=== PATIENT | female | born 1940 | race Caucasian/White ===

== ENCOUNTER 2020-07-21 11:18 | Outpatient (REF) | payer MEDICARE, OTHER, SELFPAY ==
[2020-07-21 14:52] LABS: Alanine Aminotransferase 24 U/L (0-31); Albumin Level 4.1 g/dL (3.5-5.0); Alkaline Phosphatase 64 U/L (39-117); Anion Gap 15 (12-20); Aspartate Amino Transferase 22 U/L (5-31); Bilirubin Direct 0.2 mg/dL (0.0-0.5); Bilirubin Total 0.4 mg/dL (0.0-1.0); Blood Urea Nitrogen 16 mg/dL (9-16); Carbon Dioxide 27 mmol/L (22-29); Chloride 103 mmol/L (96-108); Estimated Glomerular Filt Rate > 60; Potassium 4.1 mmol/l (3.3-5.1); Sodium 141 mmol/L (135-145); Total Protein 6.8 g/dL (6.5-8.0)
== END 2020-07-21 11:19 | disposition home or self-care (01) ==
LOC: HO.10HDL 11:18
PROVIDERS: Visit Provider Family Medicine
DX: K76.0 Fatty (change of) liver, not elsewhere classified (principal); I10 Essential (primary) hypertension; Z79.899 Other long term (current) drug therapy
CPT/HCPCS: 36415; 80051; 80076; 82565; 84520

== ENCOUNTER 2020-08-28 18:50 | Emergency (ER) | payer MEDICARE, OTHER, SELFPAY ==
--- NOTE | ~2020-08-28 | XR_ITS ---
EXAMINATION: XR SHOULDER, RIGHT CLINICAL INFORMATION: Fall and pain COMPARISON: None TECHNIQUE: 3. Plain film views of the right shoulder. FINDINGS: Minimally displaced slightly impacted humeral neck fracture is seen without significant angulation. Humeral head appears be well-seated within the glenoid fossa. Minimal degenerative changes. No acute abnormality within the visualized right ribs. XR/XR shoulder RT min 2V IMPRESSION: Minimally displaced and slightly impacted humeral neck fracture.
[2020-08-28 19:03] VITALS: BP 160/80; BP 181/70; PULSE 76; PULSE 89; RESP 18; TEMP 36.7; O2SAT 98; BMI 28.8
--- NOTE | 2020-08-28 19:03 | ED.FALL ---
HPI - Fall General Chief Complaint: Fall Stated Complaint: FALL, RT SHOULDER PAIN Time Seen by Provider: 08/28/20 19:02 Source: patient and EMS Mode of arrival: EMS Limitations: no limitations History of Present Illness HPI Narrative: 80-year-old female brought in by ambulance after sustained a fall, patient was at home next to her wheelchair when she was trying to fix a ceiling light patient lost balance tried to hold to the wheelchair which moved and patient fell landed on her left side, patient declined any head injury or LOC, no headache. No neck pain, no hips pain. Patient only complaining of right shoulder pain when she tried to grab the wheelchair and moved she think she twisted her right upper extremities. Related Data Previous Rx's Medication Instructions Recorded tramadol 50 mg PO BID PRN #7 tab 08/28/20 Allergies Allergy/AdvReac Type Severity Reaction Status Date / Time No Known Allergies Allergy Verified 08/28/20 19:03 [No Known Allergies*] Review of Systems Review of Systems: All other systems are reviewed and are negative Constitutional: Reports as per HPI and Reports no additional constitutional complaints Eyes: Reports as per HPI and Reports no additional eye complaints Reports system reviewed and no additional complaints, except as documented Cardiovascular: Reports as per HPI and Reports no additional cardiovascular complaints Respiratory: Reports as per HPI and Reports no additional respiratory complaints Gastrointestinal: Reports as per HPI and Reports no additional gastrointestinal complaints Genitourinary: Reports no additional female genitourinary complaints Musculoskeletal: Reports no additional musculoskeletal complaints Skin/Breast: Reports system reviewed and no additional complaints, except as docu Psychiatric: Reports no additional psychiatric complaints Endocrine: Reports no additional endocrine complaints Hematologic/Lymphatic: Reports no additional hematologic/lymphatic complaints Allergic/Immunologic: Reports no additional allergic/immunologic complaints Reports system reviewed and no additional complaints, except as documented and Reports Abnormal speech present COUNT INCLUDES THE [facility] Past Medical History Medical History (Updated 08/28/20 @ 20:55 by Mekhi Caldera MD) Dementia Social History Social History Advance Directives: No Advance Directives Information Provided: Yes Physical Exam Vital Signs: Vital Signs: Last Vital Signs Temp 98.1 F 08/28/20 19:46 Pulse 76 08/28/20 19:46 Resp 16 08/28/20 19:46 BP 179/58 H 08/28/20 19:46 Pulse Ox 97 08/28/20 19:46 Body Mass Index 28.8 Vital signs have been reviewed as normal and appeared to be correct. Blood pressure normal. Heart rate normal. Respiration rate normal. Temperature normal. Oxygen saturation normal. Appearance: Alert. Oriented X3. No acute distress. Head: Normal external exam. Normocephalic. Atraumatic. No Mix signs noted. No raccoon eyes noted Eyes: PERRLA. EOMI. Conjunctiva and sclera normal. Eyelids normal. ENT: EAC normal. TM's Normal. Pharynx normal. Uvula midline. Moist mucous membranes. No trismus noted. No drooling noted. No muffled voice noted. Neck: Normal inspection. Neck supple. FROM. No adenopathy. Thyroid Normal. No meningeal signs. No neck mass noted. CVS: Normal heart rate and rhythm. Heart sound normal. No murmurs noted. Pulses normal throughout. Respiratory: No respiratory distress. Painless inspiration. Breath sounds normal. No wheezes/rales/rhonchi noted. Chest nontender. No accessory muscle usage noted or decreased air movement noted. Abdomen: Soft and nontender. Bowel sounds normal in all 4 quadrants. No distention noted. No organomegaly noted. No visible injury noted. Back: No CVA tenderness. Full range of motion noted. Skin: Skin warm and dry. Normal skin color. Normal skin turgor. No rashes/lesions/lacerations noted. Extremities: Right shoulder held in abduction position, very tender abduction position, no obvious anterior fullness or deformity neurovascularly intact. Neuro: Oriented X 3. No motor deficit. No sensory deficit. Reflexes normal. Course Course Course Narrative: Assessment and plan. 80-year-old female who sustained mechanical fall and a right humeral neck fracture. Unfortunately patient's this morning, patient will be going home with her son. Sling was applied in the emergency department, will prescribe few pills for oxycodone for discharge. To follow-up with ortho. MDM - Fall Imaging Data Right shoulder x-ray: Radiologist's impression: Minimally displaced and slightly impacted humeral neck fracture. Discharge Plan Discharge Clinical Impression: Fracture of neck of humerus Qualifiers: Encounter type: initial encounter Fracture type: closed Laterality: right Qualified Code(s): S42.211A - Unspecified displaced fracture of surgical neck of right humerus, initial encounter for closed fracture Patient Disposition: Home, Self-Care Instructions: Arm Fracture in Adults (ED) Additional Instructions: Use the sling at all times and avoid moving the right arm. Apply ice to the right shoulder. Prescriptions: New tramadol 50 mg tablet 50 mg PO BID PRN (Reason: pain) Qty: 7 RF: 0 Referrals: Pascual Summers MD [Physician] - 2 days
[2020-08-28 19:46] VITALS: BP 179/58; PULSE 76; RESP 16; TEMP 36.7; O2SAT 97
[2020-08-28] MEDS: oxyCODONE HCl Immed Release 5 MG TABLET PO (20:34)
== END 2020-08-28 22:00 | disposition home or self-care (01) ==
PROVIDERS: Emergency Provider Emergency Medicine
DX: S42.211A Unspecified displaced fracture of surgical neck of right humerus, initial encounter for closed fracture (principal); X50.1XXA Overexertion from prolonged static or awkward postures, initial encounter; Y93.E9 Activity, other interior property and clothing maintenance; Y92.019 Unspecified place in single-family (private) house as the place of occurrence of the external cause; Y99.9 Unspecified external cause status
CPT/HCPCS: 73030; 99283

== ENCOUNTER → 2020-09-01 13:14 | Outpatient (BNVA) | payer MEDICARE, OTHER, SELFPAY | PROVIDERS: Visit Provider Physician Assistant | DX: S42.201A Unspecified fracture of upper end of right humerus, initial encounter for closed fracture (principal) | CPT/HCPCS: 99202 ==

== ENCOUNTER 2020-09-30 09:50 | Outpatient (REF) | payer MEDICARE, OTHER, SELFPAY ==
--- NOTE | ~2020-09-30 | XR_ITS ---
EXAMINATION: XR SHOULDER, RIGHT CLINICAL INFORMATION: Follow-up fracture COMPARISON: Previous x-ray 08/28/2020 TECHNIQUE: 2 views of the right shoulder of the right shoulder. FINDINGS: There is a comminuted slightly impacted right humeral neck fracture. There may be slight interval increase in medial displacement of the humeral shaft with respect to the head. Fracture line is still seen. No bony callus formation is seen. Joint spaces are normal. No other fracture is seen. Visualized right lung is clear. XR/XR shoulder RT min 2V IMPRESSION: Slight interval increase in displacement of the right humeral neck fracture.
== END 2020-09-30 09:51 | disposition home or self-care (01) ==
LOC: HO.HOSX 09:50
PROVIDERS: Visit Provider Physician Assistant
DX: S42.201D Unspecified fracture of upper end of right humerus, subsequent encounter for fracture with routine healing (principal)
CPT/HCPCS: 73030; 99212

== ENCOUNTER 2020-11-04 13:04 | Outpatient (REF) | payer MEDICARE, OTHER, SELFPAY ==
--- NOTE | ~2020-11-04 | XR_ITS ---
EXAMINATION: XR SHOULDER, RIGHT CLINICAL INFORMATION: Right shoulder fracture COMPARISON: 09/30/2020 TECHNIQUE: Two views of the right shoulder. FINDINGS: Alignment of the fracture is slightly improved. There has been some new callus formation in the interim although the fracture is predominantly ununited. No new abnormality. XR/XR shoulder RT min 2V IMPRESSION: Continued callus formation of the proximal humerus fracture which remains ununited.
== END 2020-11-04 13:05 | disposition home or self-care (01) ==
LOC: HO.HOSX 13:04
PROVIDERS: PCP Family Medicine; Visit Provider Physician Assistant
DX: S42.201D Unspecified fracture of upper end of right humerus, subsequent encounter for fracture with routine healing (principal); X58.XXXD Exposure to other specified factors, subsequent encounter
CPT/HCPCS: 73030; 99212

== ENCOUNTER 2020-12-16 13:24 | Outpatient (REF) | payer MEDICARE, OTHER, SELFPAY ==
--- NOTE | ~2020-12-16 | XR_ITS ---
EXAMINATION: XR SHOULDER, RIGHT CLINICAL INFORMATION: Proximal humeral fracture. Follow-up. COMPARISON: Radiographs right shoulder 11/04/2020, 09/30/2020 TECHNIQUE: Right shoulder is imaged in 3 views. FINDINGS: The right humeral neck fracture is stable in alignment. Fracture lines are still visible. There is callus formation again noted slightly increased from prior study. No interval destructive process. No dislocation. There are degenerative changes again seen acromioclavicular joint. XR/XR shoulder RT min 2V IMPRESSION: Proximal humeral fracture unchanged in alignment. Increased callus formation. Fracture line still visible.
== END 2020-12-16 13:25 | disposition home or self-care (01) ==
LOC: HO.XRAY 13:24
PROVIDERS: PCP Family Medicine; Visit Provider Physician Assistant
DX: S42.201A Unspecified fracture of upper end of right humerus, initial encounter for closed fracture (principal)
CPT/HCPCS: 73030; 99212

== ENCOUNTER 2021-01-09 12:39 | Outpatient (REF) | payer MEDICARE, OTHER, SELFPAY ==
[2021-01-09 14:02] LABS: MANUAL DIFF FLAG NO
[2021-01-09 14:03] LABS: Basophils Percent Auto 0.3 % (0-2); Eosinophils Absolute Auto 0.2 X10*3/uL (0.0-0.4); Eosinophils Percent Auto 2.4 % (0-4); Hematocrit 45.7 % (37-47); Hemoglobin 14.4 g/dl (12.0-16.0); Imm Gran Abs Auto 0.04 X10*3/uL (0.00-0.03); Imm Gran Pct Auto 0.5 % (0.0-0.4); Lymphocytes Percent Auto 23.6 % (20-40); Mean Corpuscular HGB Conc 31.5 g/dl (31.0-35.0); Mean Corpuscular Hemoglobin 29.6 pg (27.0-33.0); Mean Corpuscular Volume 93.8 fL (80-98); Mean Platelet Volume 10.2 fL (9.4-12.3); Monocytes Absolute Auto 0.8 X10*3/uL (0.1-1.2); Monocytes Percent Auto 9.4 % (2-11); Neutrophils Absolute Auto 5.5 X10*3/uL (2.0-8.3); Neutrophils Percent Auto 63.8 % (45-73); Platelet Count 272 X10*3/uL (160-400); Red Blood Count 4.87 X10*6/uL (4.20-5.50); White Blood Count 8.6 X10*3/uL (4.8-10.8)
[2021-01-09 14:35] LABS: Alanine Aminotransferase 19 U/L (0-31); Albumin Level 4.3 g/dL (3.5-5.0); Alkaline Phosphatase 82 U/L (39-117); Aspartate Amino Transferase 23 U/L (5-31); Bilirubin Direct 0.2 mg/dL (0.0-0.5); Bilirubin Total 0.2 mg/dL (0.0-1.0); Estimated Glomerular Filt Rate > 60; Total Protein 7.1 g/dL (6.5-8.0)
== END 2021-01-09 12:40 | disposition home or self-care (01) ==
LOC: HO.LAB 12:39
PROVIDERS: PCP Family Medicine; Visit Provider Family Medicine
DX: K75.81 Nonalcoholic steatohepatitis (NASH) (principal); R27.0 Ataxia, unspecified
CPT/HCPCS: 36415; 80076; 82565; 85025

== ENCOUNTER 2021-10-03 16:43 | Outpatient (REF) | payer MEDICARE, OTHER, SELFPAY ==
[2021-10-03 16:57] LABS: MANUAL DIFF FLAG NO
[2021-10-03 17:53] LABS: Basophils Percent Auto 0.4 % (0-2); Eosinophils Absolute Auto 0.2 X10*3/uL (0.0-0.4); Eosinophils Percent Auto 3.1 % (0-4); Hematocrit 45.6 % (37.0-47.0); Hemoglobin 14.3 g/dl (12.0-16.0); Imm Gran Abs Auto 0.02 X10*3/uL (0.00-0.03); Imm Gran Pct Auto 0.3 % (0.0-0.4); Lymphocytes Absolute Auto 2.1 X10*3/uL (1.2-4.9); Lymphocytes Percent Auto 27.7 % (20-40); Mean Corpuscular HGB Conc 31.4 g/dl (31.0-35.0); Mean Corpuscular Hemoglobin 29.5 pg (27.0-33.0); Mean Corpuscular Volume 94.2 fL (80.0-98.0); Mean Platelet Volume 10.6 fL (9.4-12.3); Monocytes Absolute Auto 0.7 X10*3/uL (0.1-1.2); Monocytes Percent Auto 9.5 % (2-11); Neutrophils Absolute Auto 4.6 x10*3/uL (2.0-8.3); Platelet Count 255 X10*3/uL (160-400); Red Blood Count 4.84 X10*6/uL (4.20-5.50); Red Cell Distribution Width 13.4 % (11.0-16.0); White Blood Count 7.7 X10*3/uL (4.8-10.8)
[2021-10-03 18:08] LABS: Alanine Aminotransferase 31 U/L (0-31); Albumin Level 4.2 g/dL (3.5-5.0); Alkaline Phosphatase 70 U/L (39-117); Anion Gap 13 (12-20); Aspartate Amino Transferase 27 U/L (5-31); Bilirubin Direct < 0.2 mg/dL (0.0-0.5); Bilirubin Total 0.4 mg/dL (0.0-1.0); Blood Urea Nitrogen 16 mg/dL (9-16); Carbon Dioxide 28 mmol/L (22-29); Chloride 106 mmol/L (96-108); Estimated Glomerular Filt Rate > 60; Potassium 4.9 mmol/L (3.3-5.1); Sodium 142 mmol/L (135-145); Total Protein 7.1 g/dL (6.5-8.0)
== END 2021-10-03 16:44 | disposition home or self-care (01) ==
LOC: HO.LAB 16:43
PROVIDERS: Visit Provider Family Medicine
DX: R27.0 Ataxia, unspecified (principal); R79.89 Other specified abnormal findings of blood chemistry
CPT/HCPCS: 36415; 80051; 80076; 82565; 84520; 85025

== ENCOUNTER 2022-08-23 15:22 | Outpatient (REF) | payer MEDICARE, OTHER, SELFPAY ==
[2022-08-23 15:42] LABS: MANUAL DIFF FLAG NO
[2022-08-23 15:57] LABS: Basophils Percent Auto 0.5 % (0-2); Eosinophils Absolute Auto 0.1 X10*3/uL (0.0-0.4); Eosinophils Percent Auto 1.4 % (0-4); Hematocrit 46.3 % (37.0-47.0); Hemoglobin 15.3 g/dl (12.0-16.0); Imm Gran Abs Auto 0.03 X10*3/uL (0.00-0.03); Imm Gran Pct Auto 0.4 % (0.0-0.4); Lymphocytes Absolute Auto 2.1 X10*3/uL (1.2-4.9); Lymphocytes Percent Auto 25.3 % (20-40); Mean Corpuscular Hemoglobin 29.9 pg (27.0-33.0); Mean Corpuscular Volume 90.6 fL (80.0-98.0); Mean Platelet Volume 10.4 fL (9.4-12.3); Monocytes Absolute Auto 0.6 X10*3/uL (0.1-1.2); Monocytes Percent Auto 6.9 % (2-11); Neutrophils Absolute Auto 5.5 x10*3/uL (2.0-8.3); Neutrophils Percent Auto 65.5 % (45-73); Platelet Count 251 X10*3/uL (160-400); Red Blood Count 5.11 X10*6/uL (4.20-5.50); Red Cell Distribution Width 13.2 % (11.0-16.0); White Blood Count 8.4 X10*3/uL (4.8-10.8)
[2022-08-23 16:20] LABS: Alanine Aminotransferase 28 U/L (0-31); Albumin Level 4.2 g/dL (3.5-5.0); Alkaline Phosphatase 81 U/L (39-117); Anion Gap 17 (12-20); Aspartate Amino Transferase 26 U/L (5-31); Bilirubin Total 0.4 mg/dL (0.0-1.0); Blood Urea Nitrogen 15 mg/dL (9-16); Calcium 9.9 mg/dL (8.4-10.2); Carbon Dioxide 28 mmol/L (22-29); Chloride 105 mmol/L (96-108); Estimated Glomerular Filt Rate > 60; Glucose Random 138 mg/dL (60-115); Potassium 4.6 mmol/L (3.3-5.1); Sodium 145 mmol/L (135-145)
== END 2022-08-23 15:23 | disposition home or self-care (01) ==
LOC: HO.LAB 15:22
PROVIDERS: PCP Family Medicine; Visit Provider Family Medicine
DX: I10 Essential (primary) hypertension (principal); R53.83 Other fatigue; R27.0 Ataxia, unspecified
CPT/HCPCS: 36415; 80053; 85025

== ENCOUNTER 2022-09-19 11:41 | Outpatient (REF) | payer MEDICARE, OTHER, SELFPAY ==
--- NOTE | ~2022-09-19 | MM_ITS ---
EXAMINATION: MM SCREENING DIGITAL BREAST TOMOSYNTHESIS, BILATERAL CLINICAL INFORMATION: Screening. Asymptomatic. The lifetime risk of breast cancer based on the Tyrer-Cuzick Model is 1%. COMPARISON: Multiple prior mammography, most recent 04/08/2020. TECHNIQUE: Digital breast tomosynthesis is performed in both the craniocaudal and mediolateral oblique views along with computer-aided detection (CAD). Synthesized 2D images are generated from the tomosynthesis. Additional exaggerated right CC view is provided. FINDINGS: There are scattered areas of fibroglandular density (ACR BI-RADS breast composition Category b). Parenchymal pattern is similar to prior exams. Again, there is numerous bilateral scattered bilateral smooth round and oval waxing and waning nodularity. There is no significant mass or architectural abnormality. No abnormal calcifications. There is a dermal lesion again seen overlying the anterior outer right breast. The axilla and skin contours are unremarkable. MM/MM tomosynthesis screening BI IMPRESSION: -No significant changes from prior studies. ASSESSMENT: BI-RADS 2: Benign RECOMMENDATION: Routine annual mammography screening. This patient's information was entered into a reminder system with a target due date for their next mammogram.
== END 2022-09-19 11:42 | disposition home or self-care (01) ==
LOC: HO.MAMMO 11:41
PROVIDERS: PCP Family Medicine; Visit Provider Family Medicine
DX: Z12.31 Encounter for screening mammogram for malignant neoplasm of breast (principal)
CPT/HCPCS: 77063; 77067

== ENCOUNTER 2023-02-26 13:39 | Outpatient (REF) | payer MEDICARE, OTHER, SELFPAY ==
[2023-02-26 13:59] LABS: MANUAL DIFF FLAG NO
[2023-02-26 14:56] LABS: Basophils Percent Auto 0.5 % (0-2); Eosinophils Absolute Auto 0.2 X10*3/uL (0.0-0.4); Eosinophils Percent Auto 2.4 % (0-4); Hematocrit 47.3 % (37.0-47.0); Hemoglobin 15.2 g/dl (12.0-16.0); Imm Gran Abs Auto 0.03 X10*3/uL (0.00-0.03); Imm Gran Pct Auto 0.4 % (0.0-0.4); Lymphocytes Absolute Auto 1.9 X10*3/uL (1.2-4.9); Lymphocytes Percent Auto 23.6 % (20-40); Mean Corpuscular HGB Conc 32.1 g/dl (31.0-35.0); Mean Corpuscular Volume 93.5 fL (80.0-98.0); Monocytes Absolute Auto 0.7 X10*3/uL (0.1-1.2); Monocytes Percent Auto 8.8 % (2-11); Neutrophils Absolute Auto 5.2 x10*3/uL (2.0-8.3); Neutrophils Percent Auto 64.3 % (45-73); Platelet Count 257 X10*3/uL (160-400); Red Blood Count 5.06 X10*6/uL (4.20-5.50); Red Cell Distribution Width 13.3 % (11.0-16.0); White Blood Count 8.1 X10*3/uL (4.8-10.8)
[2023-02-26 15:43] LABS: Alanine Aminotransferase 25 U/L (0-31); Albumin Level 4.2 g/dL (3.5-5.0); Alkaline Phosphatase 75 U/L (39-117); Anion Gap 13 (12-20); Aspartate Amino Transferase 24 U/L (5-31); Bilirubin Total 0.3 mg/dL (0.0-1.0); Blood Urea Nitrogen 13 mg/dL (9-16); Calcium 9.9 mg/dL (8.4-10.2); Carbon Dioxide 30 mmol/L (22-29); Chloride 104 mmol/L (96-108); Estimated Glomerular Filt Rate > 60; Glucose Random 86 mg/dL (60-115); Potassium 4.3 mmol/L (3.3-5.1); Sodium 143 mmol/L (135-145); Total Protein 7.3 g/dL (6.5-8.0)
[2023-03-01 03:23] LABS: Copper, serum 97 mcg/dL (70-175)
== END 2023-02-26 13:40 | disposition home or self-care (01) ==
LOC: HO.LAB 13:39
PROVIDERS: PCP Family Medicine; Visit Provider Family Medicine
DX: R53.1 Weakness (principal); R27.0 Ataxia, unspecified; E04.2 Nontoxic multinodular goiter
CPT/HCPCS: 36415; 80053; 82525; 84439; 85025

== ENCOUNTER 2023-03-16 12:34 | Emergency (ER) | payer MEDICARE, OTHER, SELFPAY ==
--- NOTE | ~2023-03-16 | XR_ITS ---
EXAMINATION: XR CHEST CLINICAL INFORMATION: Shortness of breath COMPARISON: Frontal view 03/09/19 TECHNIQUE: 2 views of the chest were obtained. FINDINGS: Devices overlie the patient. There is kyphosis and rotation to the left. There is calcification of the aortic arch. The cardiac size, anthony and vasculature are within normal limits. There is no acute focal pneumonia or major zone atelectasis. There is no significant pleural fluid or pneumothorax. Moderately severe osteophytes in the visualized spine. XR/XR chest 2V IMPRESSION: No definite focal pneumonia or edema.
[2023-03-16 12:40] VITALS: BP 152/88; PULSE 115; O2SAT 97
[2023-03-16 12:44] VITALS: BP 170/70; PULSE 108; RESP 20; TEMP 38.5; O2SAT 95; BMI 30.7
--- NOTE | 2023-03-16 13:02 | ECG_ITS ---
Test Reason : WEAKNESS Blood Pressure : / mmHG Vent. Rate : 106 BPM Atrial Rate : 106 BPM P-R Int : 156 ms QRS Dur : 076 ms QT Int : 344 ms P-R-T Axes : 037 -18 079 degrees QTc Int : 456 ms Sinus tachycardia Cannot rule out Anterior infarct , age undetermined Abnormal ECG When compared with ECG of 09-MAR-2019 15:41, No significant change was found Referred By: Bonita Peterson Electronically Signed By:RENATA LAURENT
--- NOTE | 2023-03-16 13:09 | ED.FEVER ---
HPI - Fever General Chief Complaint: Fever Stated Complaint: Shortness of Breath Time Seen by Provider: 03/16/23 12:34 Source: patient and EMS Mode of arrival: EMS Limitations: altered mental status History of Present Illness HPI Narrative: 82yo female with past medical history of dementia presents to the ER with complaints of sore throat, cough, shortness of breath, body aches since last evening. On arrival patient is febrile. Patient denies any chest pain, vomiting, diarrhea, abdominal pain, skin rash, neck pain, neck stiffness Related Data Previous Rx's Medication Instructions Recorded tramadol 50 mg tablet 50 mg PO BID PRN pain #7 tabs 08/28/20 Allergies Allergy/AdvReac Type Severity Reaction Status Date / Time No Known Allergies Allergy Verified 12/16/20 14:09 [No Known Allergies*] Review of Systems Review of Systems: Yes all other systems are reviewed and are negative Constitutional: Constitutional: Reports no additional constitutional complaints, Reports body ache(s), Denies chills, Reports fever(s), Denies headache(s) and Denies weakness Eyes: Eyes: Reports no additional eye complaints and Denies change in vision ENT: Reports system reviewed and no additional complaints, except as documented, Denies dizziness, Denies headache(s), Denies nasal congestion, Denies nasal discharge, Denies neck pain and Reports sore throat Cardiovascular: Cardiovascular: Reports no additional cardiovascular complaints, Denies chest pain, Denies leg edema and Reports dyspnea Respiratory: Respiratory: Reports no additional respiratory complaints, Reports cough and Reports dyspnea Gastrointestinal: Gastrointestinal: Reports no additional gastrointestinal complaints, Denies abdominal pain, Denies diarrhea, Denies nausea and Denies vomiting Genitourinary: Genitourinary: Reports no additional female genitourinary complaints and Denies urinary incontinence Musculoskeletal: Musculoskeletal: Reports no additional musculoskeletal complaints, Denies back pain, Denies arthralgias, Denies joint swelling, Denies neck pain, Denies numbness and Denies tingling Integumentary/Breasts: Skin/Breast: Reports system reviewed and no additional complaints, except as docu and Denies rash Neurologic: Reports system reviewed and no additional complaints, except as documented, Denies Abnormal speech present, Reports confusion, Denies dizziness, Denies headache(s), Denies numbness, Denies tingling and Denies weakness Psychiatric: Psychiatric: Reports confusion PMFSH Past Medical History Attestation statement: The following information was validated with the patient. Source: old records reviewed and nursing notes reviewed Medical History Dementia Social History Social History Alcohol intake: never Smoked in Last 30 Days: No Use of substances other than those prescribed or required for medical reasons: No Advance Directives: No Advance Directives Information Provided: No Current occupational status: retired and disabled Current occupation: rt handed Physical Exam Vital Signs: Vital Signs: Last Vital Signs Temp 100.3 F 03/16/23 16:05 Pulse 82 03/16/23 16:05 Resp 18 03/16/23 16:05 BP 144/82 H 03/16/23 14:00 Pulse Ox 95 03/16/23 16:05 O2 Del Method Room Air 03/16/23 16:05 BMI result Body Mass Index 30.7 Const: General: cooperative, healthy appearing, comfortable, no acute distress and confusion Orientation/consciousness: confusion Limitations: no limitations HEENT: Head: Yes normal to inspection Ears: hearing grossly normal bilaterally and TM's normal bilaterally General nose exam: Normal external nose present Face and sinus: Yes normal facial exam Mouth: Normal oral and palatal mucosa present Throat: Yes posterior oropharynx normal, Yes tonsils normal and Yes uvula midline Eyes: General: appearance normal, both eyes and all related structures Pupils: Equal, round and reactive pupils present Neck: Neck: Yes normal visual inspection, Yes full ROM, Yes no lymphadenopathy and Yes no meningeal signs Chest: Chest palpation & inspection: normal inspection of the chest Resp: Effort & Inspection: normal respiratory effort Auscultation: clear to auscultation bilaterally Cardio: Rate: regular rate Rhythm: regular rhythm Peripheral pulses: Peripheral pulses 2+ throughout GI: Inspection: Yes normal to inspection Palpation (GI): Soft to palpation and nontender Auscultation: normal bowel sounds Back/Spine/Pelvis: Thoracic/Lumbar Spine: thoracic and lumbar spine normal to inspection Skin: General skin exam: no rashes or lesions noted Neuro: General: no meningeal signs, no focal motor deficits, normal sensation to monofilament and confusion Cranial nerves: Yes Equal, round and reactive pupils present Cognition (Neuro): normal cognition Speech: No Abnormal speech present Motor exam (neuro): 5/5 motor strength present throughout Sensory Exam: Normal double simultaneous stimulation for sensation Extrem: General: Yes normal to inspection, Yes no pedal edema and Yes no calf tenderness Course Course Course Narrative: 1414-fever and tachycardia from viral infection (COVID) Reevaluation(s) Reevaluation #1: 1600-patient ambulated in the emergency room with oxygen saturation greater than 95% with no hypoxia or tachypnea. Her repeat lactic acid is pending. She did receive IV fluids. She does live with her son. I called and left a message with him to inform him of her results and make sure that he is comfortable with her being discharged home to him. Sign out to Symone GERONIMO pending above Reevaluation #2: lactic acid normal. patient up and ambulating well with SpO2 95%. at this time she is stable for d/c home. 2 calls made to the son about d/c home - VM left. he is a teletray operator and has mass this evening. will try again later to contact him. Medications Administered Discontinued Medications Generic Name Dose Route Start Last Admin Trade Name Freq PRN Reason Stop Dose Admin Acetaminophen 975 mg 03/16/23 13:02 03/16/23 13:34 Acetaminophen 325 Mg Tablet PO 03/16/23 13:03 975 mg ONCE ONE Administration Sodium Chloride 1,000 mls @ 999 mls/hr 03/16/23 13:02 03/16/23 16:15 Ns IV 03/16/23 14:02 Infused .Q1H1M STA Infusion Medical Decision Making Medical Decision Making [facility] Narrative: 82-year-old female with a history dementia presents to the ER with upper respiratory symptoms and fever. On arrival patient is febrile and tachycardic. No hypoxia or tachypnea Patient will need labs including blood cultures and lactic acid, chest x-ray, viral testing Will give APAP, IVF Differential Diagnosis Differential Diagnoses: The differential diagnosis associated with the presentation includes Viral syndrome, influenza, pneumonia Low concern for PE (no chest pain or shortness of breath, no clinical findings concerning for dvt, no hypoxia or tachypnea), meningitis Admission/Observation Consideration of admission/observation: Escalation of care including admission/observation considered No hypoxia or tachypnea to suggest need for supplemental oxygen and admission. Lab Data [facility] Lab Attestation statement: I reviewed the patient's lab results. 03/16/23 13:11 Labs: Lab Results 03/16/23 03/16/23 03/16/23 Range/Units 13:11 13:11 13:11 WBC 8.6 (4.8-10.8) X10*3/uL RBC 4.77 (4.20-5.50) X10*6/uL Hgb 14.3 (12.0-16.0) g/dl Hct 42.2 (37.0-47.0) % MCV 88.5 (80.0-98.0) fL MCH 30.0 (27.0-33.0) pg MCHC 33.9 (31.0-35.0) g/dl RDW 13.2 (11.0-16.0) % Plt Count 221 (160-400) X10*3/uL MPV 10.5 (9.4-12.3) fL Immature Gran % (Auto) 0.3 (0.0-0.4) % Neut % (Auto) 84.3 H (45-73) % Lymph % (Auto) 5.8 L (20-40) % [place] % (Auto) 8.9 (2-11) % Eos % (Auto) 0.5 (0-4) % Baso % (Auto) 0.2 (0-2) % Lymph # (Auto) 0.5 L (1.2-4.9) X10*3/uL [place] # (Auto) 0.8 (0.1-1.2) X10*3/uL Eos # (Auto) 0.0 (0.0-0.4) X10*3/uL Baso # (Auto) 0.0 (0.0-0.2) X10*3/uL Abs Immat Gran (auto) 0.03 (0.00-0.03) X10*3/uL Absolute Neuts (auto) 7.2 (2.0-8.3) x10*3/uL Absolute Nucleated RBC 0.000 (0.0-0.012) X10*3/uL Nucleated RBC % (auto) 0.0 (0.0-0.2) /100WBC PT (11.1-13.3) SEC INR (0.9-1.1) Sodium 138 (135-145) mmol/L Potassium 4.3 (3.3-5.1) mmol/L Chloride 103 (96-108) mmol/L Carbon Dioxide 25 (22-29) mmol/L Anion Gap 14 (12-20) BUN 15 (9-16) mg/dL Creatinine 0.69 (0.5-1.4) mg/dL Estim Creat Clear Calc 76.9 Estimated GFR > 60 Random Glucose 85 (60-115) mg/dL Lactic Acid (0.5-2.0) mmol/L Lactic Acid F/U @ 2Hr (0.5-2.0) mmol/L Calcium 9.8 (8.4-10.2) mg/dL Magnesium 1.8 (1.6-2.6) mg/dL Total Bilirubin 0.4 (0.0-1.0) mg/dL Direct Bilirubin 0.1 (0.0-0.5) mg/dL AST 29 (5-31) U/L ALT 26 (0-31) U/L Alkaline Phosphatase 84 (39-117) U/L Troponin I High Sens < 2.7 (<3.5-17.0) ng/L B-Natriuretic Peptide (<100) pg/mL Total Protein 7.1 (6.5-8.0) g/dL Albumin 4.1 (3.5-5.0) g/dL Influenza Type A (PCR) (Negative) Influenza Type B (PCR) (Negative) RSV RNA Qual (PCR) (Negative) SARS-CoV-2 RNA (RT-PCR) (Negative) 03/16/23 03/16/23 03/16/23 Range/Units 13:11 13:11 13:17 WBC (4.8-10.8) X10*3/uL RBC (4.20-5.50) X10*6/uL Hgb (12.0-16.0) g/dl Hct (37.0-47.0) % MCV (80.0-98.0) fL MCH (27.0-33.0) pg MCHC (31.0-35.0) g/dl RDW (11.0-16.0) % Plt Count (160-400) X10*3/uL MPV (9.4-12.3) fL Immature Gran % (Auto) (0.0-0.4) % Neut % (Auto) (45-73) % Lymph % (Auto) (20-40) % [place] % (Auto) (2-11) % Eos % (Auto) (0-4) % Baso % (Auto) (0-2) % Lymph # (Auto) (1.2-4.9) X10*3/uL [place] # (Auto) (0.1-1.2) X10*3/uL Eos # (Auto) (0.0-0.4) X10*3/uL Baso # (Auto) (0.0-0.2) X10*3/uL Abs Immat Gran (auto) (0.00-0.03) X10*3/uL Absolute Neuts (auto) (2.0-8.3) x10*3/uL Absolute Nucleated RBC (0.0-0.012) X10*3/uL Nucleated RBC % (auto) (0.0-0.2) /100WBC PT (11.1-13.3) SEC INR (0.9-1.1) Sodium (135-145) mmol/L Potassium (3.3-5.1) mmol/L Chloride (96-108) mmol/L Carbon Dioxide (22-29) mmol/L Anion Gap (12-20) BUN (9-16) mg/dL Creatinine (0.5-1.4) mg/dL Estim Creat Clear Calc Estimated GFR Random Glucose (60-115) mg/dL Lactic Acid 2.8 H* (0.5-2.0) mmol/L Lactic Acid F/U @ 2Hr (0.5-2.0) mmol/L Calcium (8.4-10.2) mg/dL Magnesium (1.6-2.6) mg/dL Total Bilirubin (0.0-1.0) mg/dL Direct Bilirubin (0.0-0.5) mg/dL AST (5-31) U/L ALT (0-31) U/L Alkaline Phosphatase (39-117) U/L Troponin I High Sens (<3.5-17.0) ng/L B-Natriuretic Peptide 23 (<100) pg/mL Total Protein (6.5-8.0) g/dL Albumin (3.5-5.0) g/dL Influenza Type A (PCR) NEGATIVE (Negative) Influenza Type B (PCR) NEGATIVE (Negative) RSV RNA Qual (PCR) NEGATIVE (Negative) SARS-CoV-2 RNA (RT-PCR) POSITIVE A (Negative) 03/16/23 03/16/23 Range/Units 14:29 16:24 WBC (4.8-10.8) X10*3/uL RBC (4.20-5.50) X10*6/uL Hgb (12.0-16.0) g/dl Hct (37.0-47.0) % MCV (80.0-98.0) fL MCH (27.0-33.0) pg MCHC (31.0-35.0) g/dl RDW (11.0-16.0) % Plt Count (160-400) X10*3/uL MPV (9.4-12.3) fL Immature Gran % (Auto) (0.0-0.4) % Neut % (Auto) (45-73) % Lymph % (Auto) (20-40) % [place] % (Auto) (2-11) % Eos % (Auto) (0-4) % Baso % (Auto) (0-2) % Lymph # (Auto) (1.2-4.9) X10*3/uL [place] # (Auto) (0.1-1.2) X10*3/uL Eos # (Auto) (0.0-0.4) X10*3/uL Baso # (Auto) (0.0-0.2) X10*3/uL Abs Immat Gran (auto) (0.00-0.03) X10*3/uL Absolute Neuts (auto) (2.0-8.3) x10*3/uL Absolute Nucleated RBC (0.0-0.012) X10*3/uL Nucleated RBC % (auto) (0.0-0.2) /100WBC PT 11.8 (11.1-13.3) SEC INR 1.0 (0.9-1.1) Sodium (135-145) mmol/L Potassium (3.3-5.1) mmol/L Chloride (96-108) mmol/L Carbon Dioxide (22-29) mmol/L Anion Gap (12-20) BUN (9-16) mg/dL Creatinine (0.5-1.4) mg/dL Estim Creat Clear Calc Estimated GFR Random Glucose (60-115) mg/dL Lactic Acid (0.5-2.0) mmol/L Lactic Acid F/U @ 2Hr 1.5 (0.5-2.0) mmol/L Calcium (8.4-10.2) mg/dL Magnesium (1.6-2.6) mg/dL Total Bilirubin (0.0-1.0) mg/dL Direct Bilirubin (0.0-0.5) mg/dL AST (5-31) U/L ALT (0-31) U/L Alkaline Phosphatase (39-117) U/L Troponin I High Sens (<3.5-17.0) ng/L B-Natriuretic Peptide (<100) pg/mL Total Protein (6.5-8.0) g/dL Albumin (3.5-5.0) g/dL Influenza Type A (PCR) (Negative) Influenza Type B (PCR) (Negative) RSV RNA Qual (PCR) (Negative) SARS-CoV-2 RNA (RT-PCR) (Negative) Independent Interpretation I performed an independent interpretation of an: EKG and Plain X-Ray Interpretation: I independently reviewed the EKG which shows sinus tachycardia with a rate of 106, normal [place], normal QRS, normal QT Independently reviewed the chest x-ray and agree with Radiology report Radiology Impression Discussion of test interpretation with radiology: I have reviewed the radiologist's reading. Radiologist Impression: [place] [id number] XRay Report Signed Patient: Gladys Caban MR#: [id number] : 1940 Acct:[id number] Age/Sex: 82 / F ADM Date: 03/16/23 Loc: HO.ED Attending Dr: Ordering Physician: Bonita Wright NP Date of Service: 03/16/23 Procedure(s): XR chest 2V Accession Number(s): [id number] cc: Physician,Unknown ; Bonita Wright NP~ EXAMINATION: XR CHEST CLINICAL INFORMATION: Shortness of breath COMPARISON: Frontal view 03/09/19 TECHNIQUE: 2 views of the chest were obtained. FINDINGS: Devices overlie the patient. There is kyphosis and rotation to the left. There is calcification of the aortic arch. The cardiac size, anthony and vasculature are within normal limits. There is no acute focal pneumonia or major zone atelectasis. There is no significant pleural fluid or pneumothorax. Moderately severe osteophytes in the visualized spine. XR/XR chest 2V IMPRESSION: No definite focal pneumonia or edema. Independent Historian Clinical information obtained from an independent historian. History obtained from or confirmed by: EMS Discharge Plan Discharge Clinical Impression: COVID-19 Patient Disposition: Home, Self-Care Instructions: COVID-19 (Coronavirus Disease 2019) (ED) Additional Instructions: Motrin or Tylenol for pain or fever Increase fluids, rest Return for shortness of breath, weakness, vomiting, chest pain Prescriptions: No Action tramadol 50 mg tablet 50 mg PO BID PRN (Reason: pain) Qty: 7 0RF Referrals: Physician,Unknown J [Primary Care Provider] - 1 week
[2023-03-16] MEDS: 0.9 % Sodium Chloride 1,000 ML 999 ML IV (13:24)
[2023-03-16] MEDS: Acetaminophen 325 MG TABLET 975 MG PO (13:34)
[2023-03-16 13:41] LABS: B Type Natriuretic Peptide 23 pg/mL (<100)
[2023-03-16 13:54] LABS: Alanine Aminotransferase 26 U/L (0-31); Albumin Level 4.1 g/dL (3.5-5.0); Alkaline Phosphatase 84 U/L (39-117); Anion Gap 14 (12-20); Aspartate Amino Transferase 29 U/L (5-31); Bilirubin Direct 0.1 mg/dL (0.0-0.5); Bilirubin Total 0.4 mg/dL (0.0-1.0); Blood Urea Nitrogen 15 mg/dL (9-16); Calcium 9.8 mg/dL (8.4-10.2); Carbon Dioxide 25 mmol/L (22-29); Chloride 103 mmol/L (96-108); Creatinine Clr Calc Pharmacy 76.9; Estimated Glomerular Filt Rate > 60; Glucose Random 85 mg/dL (60-115); Magnesium 1.8 mg/dL (1.6-2.6); Potassium 4.3 mmol/L (3.3-5.1); Sodium 138 mmol/L (135-145); Total Protein 7.1 g/dL (6.5-8.0)
[2023-03-16 13:55] LABS: Troponin-I High Sensitivity < 2.7 ng/L (<3.5-17.0)
[2023-03-16 14:00] VITALS: BP 144/82; PULSE 80; RESP 18; TEMP 37.7; O2SAT 96
[2023-03-16 14:05] LABS: Influenza A PCR NEGATIVE (Negative); Influenza B PCR NEGATIVE (Negative); Resp Syncy Virus RNA Qual PCR NEGATIVE (Negative); SARS COV2 PCR INHOUSE POSITIVE (Negative)
[2023-03-16 14:35] LABS: MANUAL DIFF FLAG NO
[2023-03-16 14:39] LABS: Lactic Acid 2.8 mmol/L (0.5-2.0)
[2023-03-16 14:44] LABS: Basophils Percent Auto 0.2 % (0-2); Eosinophils Percent Auto 0.5 % (0-4); Hematocrit 42.2 % (37.0-47.0); Hemoglobin 14.3 g/dl (12.0-16.0); Imm Gran Abs Auto 0.03 X10*3/uL (0.00-0.03); Imm Gran Pct Auto 0.3 % (0.0-0.4); Lymphocytes Absolute Auto 0.5 X10*3/uL (1.2-4.9); Lymphocytes Percent Auto 5.8 % (20-40); Mean Corpuscular HGB Conc 33.9 g/dl (31.0-35.0); Mean Corpuscular Volume 88.5 fL (80.0-98.0); Mean Platelet Volume 10.5 fL (9.4-12.3); Monocytes Absolute Auto 0.8 X10*3/uL (0.1-1.2); Monocytes Percent Auto 8.9 % (2-11); Neutrophils Absolute Auto 7.2 x10*3/uL (2.0-8.3); Neutrophils Percent Auto 84.3 % (45-73); Platelet Count 221 X10*3/uL (160-400); Red Blood Count 4.77 X10*6/uL (4.20-5.50); Red Cell Distribution Width 13.2 % (11.0-16.0); White Blood Count 8.6 X10*3/uL (4.8-10.8)
--- NOTE | 2023-03-16 14:51 | PC.NURSE ---
Pt A/OX2, +COVID, pt and family educated, no s/sx of acute resp distress. 95-95% RA, LSC in all high.
--- NOTE | 2023-03-16 14:58 | PC.NURSE ---
Pt temp reassessed 98.8 orally, VSS
[2023-03-16 15:01] LABS: Prothrombin Time 11.8 SEC (11.1-13.3)
[2023-03-16 15:17] LABS: Reflex Lactate? Lactic Acid Added
[2023-03-16 16:05] VITALS: PULSE 82; RESP 18; TEMP 37.9; O2SAT 95
--- NOTE | 2023-03-16 16:19 | PC.NURSE ---
PT ASSISTED TO TRIAL AMBULATION WITH WALKER, STEADY GAIT, SPO2 REMAINED AT 95% ON RA THROUGHOUT. RESP EVEN, NONLABOURED, PT SPEAKING IN CLEAR FULL SENTENCES. AWAITING REPEAT LACTATE.
--- NOTE | 2023-03-16 16:21 | PC.NURSE ---
Provided pt with inc care, ambulated with walker and assist maintain O2 sat 95-97% on RA without OLIVEIRA/SOB. BURNER SHAFT updated.
[2023-03-16 16:38] LABS: ~Lactic Acid-LAB USE ONLY 1.5 mmol/L (0.5-2.0)
== END 2023-03-16 17:40 | disposition home or self-care (01) ==
PROVIDERS: Nurse Practitioner Family; Emergency Provider Emergency Medicine
DX: U07.1 COVID-19 (principal); R50.9 Fever, unspecified; R06.02 Shortness of breath
CPT/HCPCS: 0241U; 36415; 71046; 80048; 80076; 83605; 83735; 83880; 84484; 85025; 85610; 87040; 93005; 96360; 96361; 99284; 99285

== ENCOUNTER 2023-11-19 11:52 | Outpatient (REF) | payer MEDICARE, OTHER, SELFPAY ==
--- NOTE | ~2023-11-19 | MM_ITS ---
EXAMINATION: MM SCREENING DIGITAL BREAST TOMOSYNTHESIS, BILATERAL CLINICAL INFORMATION: Screening. Asymptomatic. COMPARISON: Mammography: This study is compared with prior exams dating back to 2018. TECHNIQUE: Digital breast tomosynthesis is performed in both the craniocaudal and mediolateral oblique views along with computer-aided detection (CAD). Synthesized 2D images are generated from the tomosynthesis. FINDINGS: There are scattered areas of fibroglandular density (ACR BI-RADS breast composition Category b). There is an asymmetry in the lower outer quadrant of the left breast which warrants additional mammographic and targeted sonographic imaging. In the right breast, there are no significant masses, abnormal calcifications, or other abnormalities. MM/MM tomosynthesis screening BI IMPRESSION: Asymmetry of the left breast warrants additional mammographic and targeted sonographic imaging. No mammographic signs of malignancy right breast. ASSESSMENT: BI-RADS BI-RADS 0 - Incomplete: Needs additional Imaging. RECOMMENDATION: 1. Additional views of the left breast. 2. Targeted ultrasound if warranted after review of the additional views. 3. Radiology department staff will contact the patient for additional imaging. Additional Imaging required This examination should not preclude the clinical evaluation of a suspicious palpable abnormality. This patient's information was entered into a reminder system with a target due date for their next mammogram.
== END 2023-11-19 11:53 | disposition home or self-care (01) ==
LOC: HO.MAMMO 11:52
PROVIDERS: PCP Family Medicine; Visit Provider Family Medicine
DX: Z12.31 Encounter for screening mammogram for malignant neoplasm of breast (principal)
CPT/HCPCS: 77063; 77067

== ENCOUNTER → 2023-11-19 12:00 | Outpatient (BNV) | payer MEDICARE, OTHER, SELFPAY | PROVIDERS: PCP Family Medicine; Visit Provider Radiology Diagnostic Radiology | DX: Z12.31 Encounter for screening mammogram for malignant neoplasm of breast (principal) | CPT/HCPCS: 77063; 77067 ==

== ENCOUNTER 2023-12-03 14:46 | Outpatient (REF) | payer MEDICARE, OTHER, SELFPAY ==
--- NOTE | ~2023-12-03 | XR_ITS ---
EXAMINATION: XR CHEST CLINICAL INFORMATION: Shortness of breath and fatigue. COMPARISON: Chest radiograph 03/16/2023 TECHNIQUE: 2 views of the chest were obtained. FINDINGS: Degenerative changes are present in the spine with scoliosis convex to the right. There is some minimal right basilar atelectasis. The exam is otherwise unremarkable. Heart size normal. No infiltrates, effusions or lung masses. Surgical clips are present in the right upper quadrant. XR/XR chest 2V IMPRESSION: No acute intrathoracic disease.
[2023-12-03 15:18] LABS: MANUAL DIFF FLAG NO
--- NOTE | 2023-12-03 15:19 | ECG_ITS ---
Test Reason : SOB Blood Pressure : / mmHG Vent. Rate : 079 BPM Atrial Rate : 079 BPM P-R Int : 150 ms QRS Dur : 086 ms QT Int : 404 ms P-R-T Axes : 027 -18 066 degrees QTc Int : 463 ms Normal sinus rhythm Minimal voltage criteria for LVH, may be normal variant ( R in aVL ) Borderline ECG When compared with ECG of 16-MAR-2023 13:42, No significant change was found Referred By: Ashkan Fernandes Electronically Signed By:GENA FARRIS MD
[2023-12-03 15:37] LABS: Basophils Percent Auto 0.4 % (0-2); Eosinophils Absolute Auto 0.3 X10*3/uL (0.0-0.4); Eosinophils Percent Auto 2.8 % (0-4); Hematocrit 45.3 % (37.0-47.0); Imm Gran Abs Auto 0.03 X10*3/uL (0.00-0.03); Imm Gran Pct Auto 0.3 % (0.0-0.4); Lymphocytes Absolute Auto 2.4 X10*3/uL (1.2-4.9); Lymphocytes Percent Auto 26.5 % (20-40); Mean Corpuscular HGB Conc 33.1 g/dl (31.0-35.0); Mean Corpuscular Hemoglobin 30.5 pg (27.0-33.0); Mean Corpuscular Volume 92.3 fL (80.0-98.0); Mean Platelet Volume 10.3 fL (9.4-12.3); Monocytes Absolute Auto 0.7 X10*3/uL (0.1-1.2); Monocytes Percent Auto 7.7 % (2-11); Neutrophils Absolute Auto 5.6 x10*3/uL (2.0-8.3); Neutrophils Percent Auto 62.3 % (45-73); Platelet Count 247 X10*3/uL (160-400); Red Blood Count 4.91 X10*6/uL (4.20-5.50); Red Cell Distribution Width 13.4 % (11.0-16.0); White Blood Count 9.1 X10*3/uL (4.8-10.8)
[2023-12-03 15:59] LABS: Alanine Aminotransferase 32 U/L (0-31); Albumin Level 4.1 g/dL (3.5-5.0); Alkaline Phosphatase 70 U/L (39-117); Anion Gap 15 (12-20); Aspartate Amino Transferase 29 U/L (5-31); Bilirubin Total 0.3 mg/dL (0.0-1.0); Blood Urea Nitrogen 13 mg/dL (9-16); Calcium 9.9 mg/dL (8.4-10.2); Carbon Dioxide 28 mmol/L (22-29); Chloride 105 mmol/L (96-108); Estimated Glomerular Filt Rate > 60; Glucose Random 88 mg/dL (60-115); Potassium 4.4 mmol/L (3.3-5.1); Sodium 144 mmol/L (135-145); Total Protein 7.1 g/dL (6.5-8.0)
== END 2023-12-03 14:47 | disposition home or self-care (01) ==
LOC: HO.LAB 14:46
PROVIDERS: PCP Family Medicine; Visit Provider Family Medicine
DX: R53.83 Other fatigue (principal); R06.02 Shortness of breath
CPT/HCPCS: 36415; 71046; 80053; 85025; 93005

== ENCOUNTER → 2023-12-03 15:19 | Outpatient (BNV) | payer MEDICARE, OTHER, SELFPAY | PROVIDERS: PCP Family Medicine; Visit Provider Internal Medicine Cardiovascular Disease | DX: R06.02 Shortness of breath (principal) | CPT/HCPCS: 93010 ==

== ENCOUNTER 2024-04-14 12:45 | Outpatient (REF) | payer MEDICARE, OTHER, SELFPAY ==
--- NOTE | ~2024-04-14 | MM_ITS ---
EXAMINATION: MM DIAGNOSTIC DIGITAL BREAST TOMOSYNTHESIS, LEFT CLINICAL INFORMATION: Diagnostic exam for one view asymmetry lateral left breast seen on screening CC view. COMPARISON: Mammography: 11/19/2023 screening, 09/19/2022, 04/08/2020, 12/17/2018, and dating back to 2014. TECHNIQUE: Digital breast tomosynthesis is performed in the following views: 3-D spot compression left CC and MLO views. Computer-aided diagnosis was used for this study. FINDINGS: There are scattered areas of fibroglandular density (ACR BI-RADS breast composition Category b). The 1 view asymmetry corresponds with a upper outer quadrant lymph node in the posterior one third of the left breast, which has been present on exams dating all the way to 2013 and is unchanged. There is a small fatty notch. This is a benign structure, stable from numerous exams, and no further follow-up recommended. There are several additional waxing and waning smooth round and oval nodules in the mid and anterior left breast consistent with benign entity such as cysts. MM/MM tomosynthesis added views L IMPRESSION: -There are no findings suspicious for malignancy. -Asymmetry in question is a benign intramammary lymph node in the upper outer quadrant of the left breast, stable from exams dating back to 2013. No further follow-up recommended. ASSESSMENT: BI-RADS BI-RADS 2 - Benign Findings RECOMMENDATION: 1 year F/U Results were provided to the patient at time of visit by the technologist. This patient's information was entered into a reminder system with a target due date for their next mammogram. Electronically signed by: Lucio Flaherty MD 04/14/2024 01:42 PM EDT
== END 2024-04-14 12:46 | disposition home or self-care (01) ==
LOC: HO.MAMMO 12:45
PROVIDERS: PCP Family Medicine; Visit Provider Family Medicine
DX: N64.89 Other specified disorders of breast (principal)
CPT/HCPCS: 77061; 77065

== ENCOUNTER → 2024-04-14 13:00 | Outpatient (BNV) | payer MEDICARE, OTHER, SELFPAY | PROVIDERS: PCP Family Medicine; Visit Provider Radiology Diagnostic Radiology | DX: R92.8 Other abnormal and inconclusive findings on diagnostic imaging of breast (principal) | CPT/HCPCS: 77065; G0279 ==

== ENCOUNTER 2024-09-14 11:36 | Outpatient (REF) | payer MEDICARE, OTHER, SELFPAY ==
[2024-09-14 12:02] LABS: MANUAL DIFF FLAG NO
[2024-09-14 12:35] LABS: Basophils Percent Auto 0.4 % (0-2); Eosinophils Absolute Auto 0.2 X10*3/uL (0.0-0.4); Eosinophils Percent Auto 2.2 % (0-4); Hematocrit 43.4 % (37.0-47.0); Hemoglobin 14.2 g/dl (12.0-16.0); Imm Gran Abs Auto 0.04 X10*3/uL (0.00-0.03); Imm Gran Pct Auto 0.6 % (0.0-0.4); Lymphocytes Absolute Auto 2.5 X10*3/uL (1.2-4.9); Lymphocytes Percent Auto 35.5 % (20-40); Mean Corpuscular HGB Conc 32.7 g/dl (31.0-35.0); Mean Corpuscular Hemoglobin 30.8 pg (27.0-33.0); Mean Corpuscular Volume 94.1 fL (80.0-98.0); Mean Platelet Volume 10.1 fL (9.4-12.3); Monocytes Absolute Auto 0.7 X10*3/uL (0.1-1.2); Monocytes Percent Auto 9.9 % (2-11); Neutrophils Absolute Auto 3.6 x10*3/uL (2.0-8.3); Neutrophils Percent Auto 51.4 % (45-73); Platelet Count 224 X10*3/uL (160-400); Red Blood Count 4.61 X10*6/uL (4.20-5.50); Red Cell Distribution Width 13.5 % (11.0-16.0)
[2024-09-14 13:11] LABS: Alanine Aminotransferase 37 U/L (0-31); Alkaline Phosphatase 65 U/L (39-117); Anion Gap 13 (12-20); Aspartate Amino Transferase 31 U/L (5-31); Bilirubin Direct 0.1 mg/dL (0.0-0.5); Bilirubin Total 0.3 mg/dL (0.0-1.0); Blood Urea Nitrogen 16 mg/dL (9-16); Carbon Dioxide 28 mmol/L (22-29); Chloride 107 mmol/L (96-108); Estimated Glomerular Filt Rate > 60; Potassium 4.5 mmol/L (3.3-5.1); Sodium 143 mmol/L (135-145); Total Protein 7.1 g/dL (6.5-8.0)
== END 2024-09-14 11:37 | disposition home or self-care (01) ==
LOC: HO.LAB 11:36
PROVIDERS: PCP Family Medicine; Visit Provider Family Medicine
DX: K75.81 Nonalcoholic steatohepatitis (NASH) (principal); I10 Essential (primary) hypertension; R27.0 Ataxia, unspecified
CPT/HCPCS: 36415; 80051; 80076; 82565; 84520; 85025

== ENCOUNTER 2025-01-12 14:22 | Outpatient (REF) | payer MEDICARE, OTHER, SELFPAY ==
[2025-01-12 14:28] LABS: Appearance Urine Clear; Glucose Urine UA Negative (Negative); PH 5.5 (5.0-9.0); Specific Gravity - Urine 1.020 (1.005-1.025); UMIC TRIGGER UACC YES
[2025-01-12 14:36] LABS: UACC Culture Trigger YES
--- OUTSIDE RECORDS SUMMARY | 2025-01-12 15:32 | XMS_ITS | Patient Health Record ---
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 Name Role Phone Ashkan Fernandes MD Primary Care Provider Unavailab Mary Neri Unavailable [phone] Reason For Referral No Information Medications Medication SIG (Take, Route, Fr equency, Duration) Notes Start Date End Date Status Custom Orthotics as directed 01/06/2019 Active OT Refurbishment Refurbish with full length extensions 01/06/2019 Active Advil 200 MG 1 capsule as needed Orally every 6 hrs 04/08/2013 Unknown Social History Tobacco Use: Social History Observation Description Date Details (start date - stop date) Never Smoker NA - NA Tobacco Use/Smoking Question Answer Notes Are you a: nonsmoker Additional Findings: Tobacco Non-User Aggressive non-smoker Alcohol Screen Question Answer Notes Did you have a drink containing alcohol in the p ast year? No Points 0 Interpretation Negative Problems Problem Type SNOMED Code ICD Code Onset Dates Problem Status W/U Status Risk Notes Problem Plantar fasciitis (617508237) Plantar Fasciitis (728.71) Active confirmed Problem Pain in limb (97648534) Pain in Limb (729.5) Active confirmed Plan Of Treatment No Information Insurance Providers Payer Name Payer Address Payer Phone Subscriber Number Group Number Insured Name Patient Relationship to Insured Coverage Start Date Coverage End Date [facility] [address] [place] [address] [id number] Gladys Caban Self - patient is the insured [place] [address] [place] [phone] [id number] Gladys Caban Self - patient is the insured Medical (General) History Medical History History ICD Code measles mumps Gall bladder problems Chicken pox thyroid Surgical History Surgery Date(Month/Year) gall bladder hysterectomy right breast lump pneumonia Hospitalization History Reason Date(Month/Year) [place] 6 [place] [facility] [place] [facility] [place]
--- OUTSIDE RECORDS SUMMARY | 2025-01-12 15:33 | XMS_ITS | Patient Health Record ---
Author Organization [facility] Address [address] [place] [address] Care Team Providers Care Card Lacer Jacquard Name Role Phone Dom MCGUIRE, Ashkan Primary Care Provider UnavailNoman Salazar Jr Unavailable Reason For Referral No Information Medications Medication SIG (Take, Route, Frequency, Duration) Notes Start Date End Date Status Colyte with Flavor Packs 240 GM As directed Orally Over the specified time. for 1 day(s) 09/28/2015 Active Problems Problem Type SNOMED Code ICD Code Onset Dates Problem Status W/U Status Risk Notes Problem 473675942 Colon cancer screening (Z12.11) Active confirmed Problem 92966439 Hypertension (I10) Active confirmed Problem 852306423 Fatty liver (K76.0) Active confirmed Plan Of Treatment Future Test Test Name Order Date COLONOSCOPY 09/28/2015 Insurance Providers Payer Name Payer Address Payer Phone Subscriber Number Group Number Insured Name Patient Relationship to Insured Coverage Start Date Coverage End Date [place]ARE [place] [address] [place] [address] [id number] IRAM HARRIS Self - patient is the insured [employer] [address] [place] [phone] [id number] IRAM HARRIS Self - patient is the insured Medical (General) History Medical History History ICD Code colonoscopy 07-19-2010 hypertension Denies [place],DM,CVA,Lung disease,renal dise ase Surgical History Surgery Date(Month/Year) cholecystectomy hysterectomy for abnormal uterine bleedi ng lumpectomy, right breast
== END 2025-01-12 14:23 | disposition home or self-care (01) ==
LOC: HO.LNP 14:22
PROVIDERS: Visit Provider Internal Medicine
DX: R30.0 Dysuria (principal)
CPT/HCPCS: 81001; 87086

== ENCOUNTER 2025-01-26 10:16 | Outpatient (AMB) | payer MEDICARE, OTHER, SELFPAY ==
--- NOTE | 2025-01-26 10:15 | A.OFFPC_ITS ---
Vital Signs 01/26/25 10:22 Height 5 ft 8 in BP 128/68 Blood Pressure Location Rt brachial Position Sitting Respiration 17 Pulse 94 Pulse Source Pulse Oximeter Temp 97.3 F Temp Source Temporal Artery Scan Pulse Oximetry (%) 97 Oxygen Delivery Method Room Air Intake Visit Reasons: f/u re: urinalist - Dr. Fernandes - notes scanned in [employer] Required: No Accompanied by: Son Allergies No Known Allergies (No Known Allergies*) Allergy (Verified 01/26/25 10:15) Medication List - Last Reconciled 01/26/25 by GRAZYNA Lucio chair, wheel (Wheel chair) transfer chair donepezil 5 mg PO BEDTIME doxazosin 4 mg PO DAILY loperamide (Imodium A-D) 2 mg PO Q6H PRN memantine 5 mg PO BEDTIME mirabegron ER 25 mg PO QAM Tobacco use date assessed: 01/26/25 HPI HPI Comments History of Present Illness Details 84-year-old female with history of cogni tive impairment, urge incontinence, gait instability presents to the office today accompanied by nurse Woodruff for eval uation of chronic conditions and to establish care. She reports the patient is confused at baseline but had been more so so there was thought to be UTI and did complete antibiotics. Appears to be back to baseline. She continues to experience word finding difficulty but no significant memory issues. No neurologist at that time. She is on amantadine and donepezil. She is taking mirabegron and doxazosin for urge incontinence. They are requesting transport chair due to patient's gait instability. Otherwise no complaints. ROS: Unable to ascertain ROS due to cognitive impairment EXAM: Constitutional - Awake and Alert, No apparent distress Eyes - PERRL Cardiovascular - S1S2, RRR, No edema Respiratory - Normal lung expansion, Normal respiratory effort, No respiratory distress, CTA bilaterally Extremities - no calf tenderness bilaterally, no swelling Skin - Warm/Dry Neurological - Alert & oriented to self, ataxic gait Psychological - Appropriate affect [facility] Medical History (Updated 01/29/25 @ 17:19 by GRAZYNA Lucio) Urge incontinence Dementia Surgical History (Updated 01/25/25 @ 15:40 by January Head) History of colonoscopy (~01/27/16) Social History Alcohol intake: never Patient Tobacco Use Status: Never used Tobacco e-Cigarette/Vaping Use: Never Used Current occupational status: retired and disabled Current occupation: rt handed Questionnaire AUDIT C Alcohol Use Questionnaire (AUDIT-C) 1. How often do you have a drink containing alcohol?: Monthly or less 2. How many drinks containing alcohol do you have on a typical day when you are drinking?: 1 or 2 Total Score: 1 Physical exam (Primary Care) Vital Signs: Last Vital Signs Temp 97.3 F 01/26/25 10:22 Pulse 94 01/26/25 10:22 Resp 17 01/26/25 10:22 BP 128/68 01/26/25 10:22 Pulse Ox 97 01/26/25 10:22 Oxygen Delivery Method Room Air 01/26/25 10:22 Tobacco/Smoking Status: Tobacco use Status Tobacco use date assessed 01/26/25 01/26/25 10:19 Patient Tobacco Use Status Never used Tobacco 01/26/25 10:26 e-Cigarette/Vaping Use Never Used 01/26/25 10:19 Coding Level of Care Code New Pt Level 4 (19213) Complex EM visit Add On G2211 Diagnoses Urge incontinence N39.41 Dementia F03.90 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 Continue donepezil and mirabegron (2) Dementia: Code(s): F03.90 - Unspecified dementia, unspecified severity, without behavioral disturbance, psychotic disturbance, mood disturbance, and anxiety Category: Medical Plan: Overall stable. Continue with BOTTOM SPRAYER/nursing. Continue memantine and doxazosin. Recommend consistent sleep-wake cycle. (3) Ataxic gait: Code(s): R26.0 - Ataxic gait Category: Medical Plan: Transfer chair ordered. Continue with assistive devices to prevent falls Plan Follow-up in the office in 4 months, labs to be completed prior to visit. Labs from 09/2024 reviewed with patient Orders: Orders Basic Metabolic Panel 3 Months F03.90 - Unspecified dementia, unspecified severity, without behavioral disturbance, psychotic disturbance, mood disturbance, and anxiety, N39.41 - Urge incontinence Complete Blood Count Auto Diff 3 Months F03.90 - Unspecified dementia, unspecified severity, without behavioral disturbance, psychotic disturbance, mood disturbance, and anxiety, N39.41 - Urge incontinence Medications: New chair, wheel (Wheel chair) transfer chair 1 ea 0RF R26.0 - Ataxic gait, R29.898 - Other symptoms and signs involving the musculoskeletal system, R42 - Dizziness and giddiness
[2025-01-26 10:22] VITALS: BP 128/68; PULSE 94; RESP 17; TEMP 36.3; O2SAT 97
--- OUTSIDE RECORDS SUMMARY | 2025-01-26 11:23 | XMS_ITS | Patient Health Record ---
Author Organization [facility] [place] Address [address] [place] [address] Care Team Providers Care Crown Buffer Name Role Phone Ashkan Fernandes MD Primary Care Provider Unavailab Mary Neri Unavailable [phone] Reason For Referral No Information Medications Medication [...] W/U Status Risk Notes Problem Plantar fasciitis (663289285) Plantar Fasciitis (728.71) Active confirmed Problem Pain in limb (38303612) Pain in Limb (729.5) Active confirmed Plan Of Treatment No Information Insurance Providers Payer Name Payer Address Payer Phone Subscriber Number Group Number Insured Name Patient Relationship to Insured Coverage Start Date Coverage End Date Medicare [facility] [address] [place] [address] [id number] Gladys Caban Self - patient is the insured [employer] [place] [address] [place] [phone] [id number] Gladys Caban Self - patient is the insured Medical (General) History Medical History History ICD Code measles mumps Gall bladder problems Chicken pox thyroid Surgical History Surgery Date(Month/Year) gall bladder hysterectomy right breast lump pneumonia Hospitalization History Reason Date(Month/Year) pt fell had 6 stitches in head - [facility] [place] 020 [facility] [place]
--- OUTSIDE RECORDS SUMMARY | 2025-01-26 11:23 | XMS_ITS | Patient Health Record ---
Author Organization [facility] Address [address] [place] [address] Care Team Prov[address] Care Court Liaison Name Role Phone Dom (RETIRED) Ashkan MCGUIRE Primary Care Provider Unavailable Noman Francis Jr Unavailable [phone] Reason For Referral No Information Medications Medication SIG (Take, Route, Frequency, Duration) Notes Start Date End Date Status Colyte with Flavor Packs 240 GM As directed Orally Over the specified time. for 1 day(s) 09/28/2015 Active Problems Problem Type SNOMED Code ICD Code Onset Dates Problem Status W/U Status Risk Notes Problem 072137283 Colon cancer screening (Z12.11) Active confirmed Problem 15184331 Hypertension (I10) Active confirmed Problem 710167880 Fatty liver (K76.0) Active confirmed Plan Of Treatment Future Test Test Name Order Date COLONOSCOPY 09/28/2015 Insurance Providers Payer Name Payer Address Payer Phone Subscriber Number Group Number Insured Name Patient Relationship to Insured Coverage Start Date Coverage End Date [place] [address] [place] [address] [id number] IRAM HARRIS Self - patient is the insured [employer] [address] [place] [phone] [id number] IRAM HARRIS Self - patient is the insured Medical (General) History Medical History History ICD Code colonoscopy 07-19-2010 hypertension Denies [place],DM,CVA,Lung disease,renal dise ase Surgical History Surgery Date(Month/Year) cholecystectomy hysterectomy for abnormal uterine bleedi ng lumpectomy, right breast
== END 2025-01-26 10:56 | disposition home or self-care (01) ==
PROVIDERS: PCP Family Medicine; Visit Provider Physician Assistant
DX: N39.41 Urge incontinence (principal); F03.90 Unspecified dementia, unspecified severity, without behavioral disturbance, psychotic disturbance, mood disturbance, and anxiety; R26.0 Ataxic gait

== ENCOUNTER → 2025-01-26 10:16 | Outpatient (BNVA) | payer MEDICARE, OTHER, SELFPAY | PROVIDERS: PCP Family Medicine; Visit Provider Physician Assistant | DX: N39.41 Urge incontinence (principal); F03.90 Unspecified dementia, unspecified severity, without behavioral disturbance, psychotic disturbance, mood disturbance, and anxiety; R26.0 Ataxic gait; Z79.899 Other long term (current) drug therapy | CPT/HCPCS: 99202 ==

== ENCOUNTER 2025-01-31 14:19 | Emergency (ER) | payer MEDICARE, OTHER, SELFPAY ==
--- NOTE | ~2025-01-31 | CT_ITS ---
CLINICAL HISTORY: Mental status change CT head without contrast Comparison: None provided Findings: No intra-axial mass, midline shift, hydrocephalus, or acute hemorrhage. Mild cerebral atrophy. Low attenuation in the periventricular white matter consistent with chronic small-vessel ischemic gliosis. The visualized paranasal sinuses and mastoid air cells are normal. The orbits are unremarkable. There is no acute fracture. IMPRESSION: 1. No acute intracranial findings. This document has been electronically signed by: Bernard Ngo MD on 01/31/2025 17:02:43
--- NOTE | ~2025-01-31 | XR_ITS ---
CLINICAL HISTORY: Mental status change 1 view chest x-ray Comparison: CR/NM/SR - XR CHEST 2 VIEWS - 12/03/23 16:13 EDT Findings: Low lung volumes. Blunting of the left costophrenic angle which may be due to small pleural effusion, atelectasis or infection. Heart size is normal. No acute fracture. IMPRESSION: Blunting of the left costophrenic angle which may be due to small pleural effusion, atelectasis or infection. Low lung volumes. This document has been electronically signed by: Bernard Ngo MD on 01/31/2025 15:35:45
[2025-01-31 14:43] VITALS: BP 160/96; BP 162/74; PULSE 101; PULSE 110; RESP 14; TEMP 36.5; O2SAT 94; O2SAT 98; BMI 29.3
--- NOTE | 2025-01-31 14:52 | ECG_ITS ---
Test Reason : mental status change Blood Pressure : */* mmHG Vent. Rate : 100 BPM Atrial Rate : 100 BPM P-R Int : 136 ms QRS Dur : 80 ms QT Int : 348 ms P-R-T Axes : 26 -19 72 degrees QTcB Int : 448 ms Normal sinus rhythm Minimal voltage criteria for LVH, may be normal variant ( R in aVL ) Borderline ECG When compared with ECG of 03-Dec-2023 15:31, No significant change was found Referred By: Mekhi Caldera Electronically Signed By: Warren Miramontes
[2025-01-31] MEDS: Lactated Ringers 1,000 ML 999 ML IV (15:19)
[2025-01-31 15:21] LABS: MANUAL DIFF FLAG NO
[2025-01-31 15:23] LABS: Hematocrit 43.4 % (37.0-47.0); Hemoglobin 14.6 g/dl (12.0-16.0); Imm Gran Abs Auto 0.03 X10*3/uL (0.00-0.03); Imm Gran Pct Auto 0.3 % (0.0-0.4); Lymphocytes Absolute Auto 0.9 X10*3/uL (1.2-4.9); Mean Corpuscular HGB Conc 33.6 g/dl (31.0-35.0); Mean Corpuscular Hemoglobin 30.7 pg (27.0-33.0); Mean Corpuscular Volume 91.4 fL (80.0-98.0); NRBC Abs Auto 0.000 X10*3/uL (0.0-0.012); NRBC Pct Auto 0.0 /100WBC (0.0-0.2); Platelet Count 217 X10*3/uL (160-400); Red Blood Count 4.75 X10*6/uL (4.20-5.50); White Blood Count 8.9 X10*3/uL (4.8-10.8)
[2025-01-31 15:32] LABS: INTERNATIONAL NORM RATIO 0.9 (0.9-1.1); Prothrombin Time 10.8 SEC (10.9-12.4)
[2025-01-31 15:39] LABS: Alanine Aminotransferase 31 U/L (0-31); Albumin Level 4.3 g/dL (3.5-5.0); Alkaline Phosphatase 78 U/L (39-117); Anion Gap 15 (12-20); Aspartate Amino Transferase 33 U/L (5-31); Blood Urea Nitrogen 10 mg/dL (9-16); Calcium 9.5 mg/dL (8.4-10.2); Carbon Dioxide 26 mmol/L (22-29); Chloride 106 mmol/L (96-108); Creatinine Clr Calc Pharmacy 70.3; Estimated Glomerular Filt Rate > 60; Lipase 80 U/L (8-78); Potassium 4.1 mmol/L (3.3-5.1); Sodium 143 mmol/L (135-145); Total Protein 7.1 g/dL (6.5-8.0)
[2025-01-31 15:44] LABS: B Type Natriuretic Peptide 23 pg/mL (<100)
[2025-01-31 15:49] LABS: Troponin-I High Sensitivity < 2.7 ng/L (<3.5-17.0)
--- NOTE | 2025-01-31 16:09 | ED_ITS ---
HPI - Altered Mental Status General Chief Complaint: Altered Mental Status Stated Complaint: AMS,NAUSEA,DIZZY,MCCLAIN PER EMS Time Seen by Provider: 01/31/25 14:42 Source: patient and EMS Mode of arrival: EMS Limitations: no limitations History of Present Illness ED Provider: DR. Caldera HPI narrative: 84-year-old female came in from home by ambulance for evaluation of mental status change with noticed by her JAVASCRIPT APPLICATION DEVELOPER for the last day patient overall feel generalized weakness, subjective fever, no dysuria, no frequency urination, no abdominal pain. Patient has been complaining on and off headache, no recent fall, no head injury. No nausea, no vomiting, no diarrhea. Related Data Home Medications ?Medication ?Instructions ?Recorded ?Confirmed donepezil 5 mg tablet 5 mg PO BEDTIME 01/26/25 doxazosin 4 mg tablet 4 mg PO DAILY 01/26/2501/26 loperamide 2 mg capsule (Imodium 2 mg PO Q6H PRN 01/2601/26/25 A-D) memantine 5 mg tablet 5 mg PO BEDTIME 01/26/25 mirabegron 25 mg tablet,extended 25 mg PO QAM 01/26/25 01/26/25 release 24 hr Previous Rx's ?Medication ?Instructions ?Recorded chair, wheel (Wheel chair) #1 ea 01/26/25 acetaminophen 500 mg capsule 1,000 mg (2 x 500 mg) PO Q8H PRN 01/31/25 fever or pain #14 caps ibuprofen 400 mg tablet 400 mg PO Q6H PRN pain #14 t abs 01/31/25 ondansetron 4 mg disintegrating 4 mg PO Q6H PRN nausea and 01/31/25 tablet vomiting #10 tabs Allergies Allergy/AdvReac Type Severity Reaction Status Date / Time No Known Allergies (No Known Allergy Verified 01/31/25 14:45 Allergies*) Review of Systems 2 Review of Systems: All other systems are reviewed and are negative Constitutional: Reports as per HPI and Reports no additional constitutional complaints Eyes: Reports as per HPI and Reports no additional eye complaints Reports system reviewed and no additional complaints, except as documented Cardiovascular: Reports as per HPI and Reports no additional cardiovascular complaints Respiratory: Reports as per HPI and Reports no additional respiratory complaints Gastrointestinal: Reports as per HPI and Reports no additional gastrointestinal complaints Genitourinary: Reports no additional female genitourinary complaints Musculoskeletal: Reports no additional musculoskeletal complaints Skin/Breast: Reports system reviewed and no additional complaints, except as docu Psychiatric: Reports no additional psychiatric complaints Endocrine: Reports no additional endocrine complaints Hematologic/Lymphatic: Reports no additional hematologic/lymphatic complaints Allergic/Immunologic: Reports no additional allergic/immunologic complaints Reports system reviewed and no additional complaints, except as documented and Reports Abnormal speech present [facility] Past Medical History Medical History Urge incontinence Dementia Surgical History History of colonoscopy (~01/27/16) Social History Social History Alcohol intake: never Patient Tobacco Use Status: Never used Tobacco e-Cigarette/Vaping Use: Never Used Advance Directives Date on File: 01/26/25 Current occupational status: retired and disabled Current occupation: rt handed Physical Exam ED Vital Signs: Vital Signs - 24 hr 01/31/25 14:43 01/31/25 16:31 01/31/25 17:27 Temperature 97.7 F 98.7 F 98.1 F Pulse Rate 101 H 98 93 Respiratory Rate 14 16 20 Blood Pressure 162/74 H 145/62 H 162/65 H Pulse Oximetry 94 95 97 Oxygen Delivery Method Room Air Room Air Room Air 01/31/25 18:04 Temperature 97.8 F Pulse Rate 95 Respiratory Rate 16 Blood Pressure 149/66 H Pulse Oximetry 97 Oxygen Delivery Method Room Air BMI result Body Mass Index 29.3 Vital signs have been reviewed and appear to be correct. Blood pressure elevated. Heart rate elevated. Respiratory rate normal. Temperature normal. Oxygen saturation normal. Appearance: Alert. Oriented X3. No acute distress. Head: Normal external exam. Normocephalic. Atraumatic. No Mix signs noted. No raccoon eyes noted Eyes: PERRLA. EOMI. Conjunctiva and sclera normal. Eyelids normal. ENT: TM's Normal. Pharynx normal. Uvula midline. Moist mucous membranes. No trismus noted. No drooling noted. No muffled voice noted. Neck: Normal inspection. Neck supple. FROM. No adenopathy. Thyroid Normal. No meningeal signs. No neck mass noted. CVS: Normal heart rate and rhythm. Heart sound normal. No murmurs noted. Pulses normal throughout. Respiratory: No respiratory distress. Painless inspiration. Breath sounds normal. No wheezes/rales/rhonchi noted. Chest nontender. No accessory muscle usage noted or decreased air movement noted. Abdomen: Soft and nontender. Bowel sounds normal in all 4 quadrants. No distention noted. No organomegaly noted. No visible injury noted. Back: No CVA tenderness. Full range of motion noted. Skin: Skin warm and dry. Normal skin color. Normal skin turgor. No rashes/lesions/lacerations noted. Extremities: No lower extremity edema. Extremities exhibit normal range of motion. Extremities nontender. Neuro: Oriented X 3. Cranial nerve exam: II-XII are grossly intact No motor deficit. No sensory deficit. Reflexes normal. Course Reevaluation(s) Reevaluation #1: 84-year-old female came in for a subjective fever, generalized weakness, change mental status. Patient is positive for COVID with stable respiratory status, no cough, no shortness of breath, no tachypnea, no hypoxia. UA is negative for UTI. Head CT is pending signed out to Dr. Andres. Time: 16:25 Reevaluation #2: The patient was signed out to me by the previous emergency physician pending the results of a head CT. The patient had presented to the emergency room out of concern for a possible altered mental status. Workup revealed a positive COVID test. It seems as though COVID is the likely explanation for her symptoms. A head CT has been ordered but had not resulted. The head CT is negative. The son feels comfortable taking the patient home. The patient was discharged. They should stay in touch with their regular doctor. They should return if worse. Time: 18:27 Medications Administered Discontinued Medications Generic Name Dose Route Start Last Admin Trade Name Freq PRN Reason Stop Dose Admin Acetaminophen 650 mg 01/31/25 16:42 01/31/25 18:08 Acetaminophen 325 Mg Tablet PO 01/31/25 16:43 650 mg ONCE ONE Administration Ceftriaxone Sodium 1 gm 01/31/25 14:53 01/31/25 16:15 Ceftriaxone Sodium 1 Gm Vial IVPUSH 01/31/25 14:54 1 gm ONCE ONE Administration Sodium Chloride 1,000 mls @ 999 mls/hr 01/31/25 14:51 01/31/25 15:19 Ns IV 01/31/25 15:51 Not Given .Q1H1M ONE Lactated Ringer's 1,000 mls @ 999 mls/hr 01/31/25 15:00 01/31/25 16:25 Lr IV 01/31/25 16:00 Infused .Q1H1M TRACY Infusion Ibuprofen 400 mg 01/31/25 17:40 01/31/25 18:08 Ibuprofen 400 Mg Tablet PO 01/31/25 17:41 400 mg ONCE ONE Administration Medical Decision Making Differential Diagnosis Differential Diagnoses: The differential diagnosis associated with the presentation includes (Intracranial pathology, UTI, pneumonia, COVID-19 infection, influenza infection, RSV, electrolyte derangement, severe anemia.) Admission/Observation Consideration of admission/observation: Escalation of care including admission/observation considered Lab Data 01/31/25 15:17 01/31/25 15:17 Labs: Lab Results 01/31/25 01/31/25 01/31/25 Range/Units 15:17 16:14 17:35 WBC 8.9 (4.8-10.8) X10*3/uL RBC 4.75 (4.20-5.50) X10*6/uL Hgb 14.6 (12.0-16.0) g/dl Hct 43.4 (37.0-47.0) % MCV 91.4 (80.0-98.0) fL MCH 30.7 (27.0-33.0) pg MCHC 33.6 (31.0-35.0) g/dl RDW 13.2 (11.0-16.0) % Plt Count 217 (160-400) X10*3/uL MPV 10.2 (9.4-12.3) fL Immature Gran % (Auto) 0.3 (0.0-0.4) % Neut % (Auto) 80.2 H (45-73) % Lymph % (Auto) 9.6 L (20-40) % [place] % (Auto) 7.9 (2-11) % Eos % (Auto) 1.5 (0-4) % Baso % (Auto) 0.5 (0-2) % Lymph # (Auto) 0.9 L (1.2-4.9) X10*3/uL [place] # (Auto) 0.7 (0.1-1.2) X10*3/uL Eos # (Auto) 0.1 (0.0-0.4) X10*3/uL Baso # (Auto) 0.0 (0.0-0.2) X10*3/uL Abs Immat Gran (auto) 0.03 (0.00-0.03) X10*3/uL Absolute Neuts (auto) 7.1 (2.0-8.3) x10*3/uL Absolute Nucleated RBC 0.000 (0.0-0.012) X10*3/uL Nucleated RBC % (auto) 0.0 (0.0-0.2) /100WBC PT 10.8 L (10.9-12.4) SEC INR 0.9 (0.9-1.1) Sodium 143 (135-145) mmol/L Potassium 4.1 (3.3-5.1) mmol/L Chloride 106 (96-108) mmol/L Carbon Dioxide 26 (22-29) mmol/L Anion Gap 15 (12-20) BUN 10 (9-16) mg/dL Creatinine 0.69 (0.5-1.4) mg/dL Estim Creat Clear Calc 70.3 Estimated GFR > 60 Random Glucose 98 (60-115) mg/dL Lactic Acid 2.2 H* (0.5-2.0) mmol/L Lactic Acid F/U @ 2Hr 2.2 H* (0.5-2.0) mmol/L Calcium 9.5 (8.4-10.2) mg/dL Total Bilirubin 0.4 (0.0-1.0) mg/dL Direct Bilirubin 0.2 (0.0-0.5) mg/dL AST 33 H (5-31) U/L ALT 31 (0-31) U/L Alkaline Phosphatase 78 (39-117) U/L Troponin I High Sens < 2.7 (<3.5-17.0) ng/L B-Natriuretic Peptide 23 (<100) pg/mL Total Protein 7.1 (6.5-8.0) g/dL Albumin 4.3 (3.5-5.0) g/dL Lipase 80 H (8-78) U/L Urine Color Yellow Urine Appearance Clear Urine pH 7.5 (5.0-9.0) Ur Specific [place] 1.015 (1.005-1.025) Urine Protein Negative (Neg-Trace) mg/dL Urine Glucose (UA) Negative (Negative) mg/dL Urine Ketones Negative (Negative) mg/dL Urine Blood Negative (Negative) Urine Nitrite Negative (Negative) Ur Leukocyte Esterase Negative (Negative) Influenza Type A (PCR) NEGATIVE (Negative) Influenza Type B (PCR) NEGATIVE (Negative) RSV RNA Qual (PCR) NEGATIVE (Negative) SARS-CoV-2 RNA (RT-PCR) POSITIVE A (Negative) Discharge Plan Discharge Clinical Impression: COVID-19 Patient Disposition: Home, Self-Care Instructions: COVID-19 (Coronavirus Disease 2019) (ED) Additional Instructions: She has tested positive for COVID. She may have acetaminophen (Tylenol) as needed for aches and fevers. You may also give occasional doses of ibuprofen as well this is more helpful. I have also sent a prescription for ondansetron which you may use as needed for nausea. Please stay in touch with her primary care doctor for additional advice as needed. Return to the emergency room if significantly worse. Prescriptions: New ibuprofen 400 mg tablet 400 mg PO Q6H PRN (Reason: pain) Qty: 14 0RF ondansetron 4 mg tablet,disintegrating 4 mg PO Q6H PRN (Reason: nausea and vomiting) Qty: 10 0RF acetaminophen 500 mg capsule 1,000 mg PO Q8H PRN (Reason: fever or pain) Qty: 14 0RF No Action donepezil 5 mg tablet 5 mg PO BEDTIME loperamide [Imodium A-D] 2 mg capsule 2 mg PO Q6H PRN doxazosin 4 mg tablet 4 mg PO DAILY memantine 5 mg tablet 5 mg PO BEDTIME mirabegron 25 mg tablet extended release 24 hr 25 mg PO QAM (DME) Wheel chair Kit See Rx Instructions .Route Qty: 1 0RF Rx Instructions: transfer chair Referrals: Xiomara Shah PA [Physician Interior Design Consultant, Hospitalist] Referral Note: COVID Interventions: ED Discharge Assessment Last Done: 01/31/25 18:04 Discharge Date/Time: 01/31/25 18:27 Print Language: Belarusian
--- NOTE | 2025-01-31 16:17 | PC.NURSE ---
Patient presents to ED from home after VICE PRESIDENT BUSINESS DEVELOPMENT reported patient having AMS. Patient appears lethargic and not feeling well. Hx UTI. Denies urinary symptoms. Pt incontinent straight cath for 100ml bright yellow urine. Patient noted to be incontinent purewick put in pace and attachted to suction. Back pain and headache rated 7/10 non radiating. 20G LAC currently running LR. Pt received dose of ceftriaxone. CXR small left pleural effusion noted. EKG = NSR. Provider in to see patient. Son at bedside. Plan of care on going
[2025-01-31 16:18] LABS: Resp Syncy Virus RNA Qual PCR NEGATIVE (Negative); SARS COV2 PCR INHOUSE POSITIVE (Negative)
[2025-01-31 16:19] LABS: Appearance Urine Clear; Glucose Urine UA Negative (Negative); PH 7.5 (5.0-9.0); Specific Gravity - Urine 1.015 (1.005-1.025)
[2025-01-31 16:31] VITALS: BP 145/62; PULSE 98; RESP 16; TEMP 37.1; O2SAT 95
[2025-01-31 17:20] LABS: Reflex Lactate? Lactic Acid Added
[2025-01-31 17:27] VITALS: BP 162/65; PULSE 93; RESP 20; TEMP 36.7; O2SAT 97
[2025-01-31 17:55] LABS: ~Lactic Acid-LAB USE ONLY 2.2 mmol/L (0.5-2.0)
[2025-01-31 18:04] VITALS: BP 149/66; PULSE 95; RESP 16; TEMP 36.6; O2SAT 97
[2025-01-31 19:39] LABS: Reflex Lactate? 2 Y
== END 2025-01-31 18:27 | disposition home or self-care (01) ==
PROVIDERS: Emergency Medicine; Emergency Provider Emergency Medicine
DX: U07.1 COVID-19 (principal); R50.9 Fever, unspecified; R53.1 Weakness; R51.9 Headache, unspecified; R41.82 Altered mental status, unspecified; R94.31 Abnormal electrocardiogram [ECG] [EKG]; R06.02 Shortness of breath; R11.0 Nausea; Z79.899 Other long term (current) drug therapy
CPT/HCPCS: 36415; 70450; 71045; 80048; 80076; 81003; 83605; 83690; 83880; 84484; 85025; 85610; 87040; 87147; 87637; 93005; 96361; 96374; 99285; J0696; J7120

== ENCOUNTER → 2025-01-31 14:52 | Outpatient (BNV) | payer MEDICARE, OTHER, SELFPAY | PROVIDERS: Emergency Provider Emergency Medicine; Visit Provider Radiology Diagnostic Radiology | DX: R41.82 Altered mental status, unspecified (principal); J90 Pleural effusion, not elsewhere classified | CPT/HCPCS: 70450; 71045 ==

== ENCOUNTER → 2025-01-31 14:52 | Outpatient (BNV) | payer MEDICARE, OTHER, SELFPAY | PROVIDERS: Emergency Provider Emergency Medicine; Visit Provider Internal Medicine Cardiovascular Disease | DX: R41.82 Altered mental status, unspecified (principal) | CPT/HCPCS: 93010 ==

== ENCOUNTER → 2025-05-10 12:53 | Outpatient (BNVA) | payer MEDICARE, OTHER, SELFPAY | PROVIDERS: Visit Provider Physician Assistant | DX: I10 Essential (primary) hypertension (principal); N39.41 Urge incontinence; F03.90 Unspecified dementia, unspecified severity, without behavioral disturbance, psychotic disturbance, mood disturbance, and anxiety; R26.0 Ataxic gait; Z79.899 Other long term (current) drug therapy | CPT/HCPCS: 99212 ==

== ENCOUNTER → 2025-05-10 12:53 | Outpatient (AMB) | payer MEDICARE, OTHER, SELFPAY ==
--- NOTE | 2025-05-10 12:53 | A.OFFPC_ITS ---
Vital Signs 05/10/25 12:58 Height 5 ft 7 in BP 148/72 H Respiration 20 Pulse 91 Pulse Source Pulse Oximeter Temp 98.1 F Temp Source Temporal Artery Scan Pulse Oximetry (%) 98 Oxygen Delivery Method Room Air Comment unable to weigh pt, out of breath Intake Visit Reasons: Medication f/u Senior Training And Development Rep Required: No Allergies No Known Allergies (No Known Allergies*) Allergy (Verified 05/10/25 12:54) Tobacco use date assessed: 01/26/25 HPI HPI Comments History of Present Illness Details 84-year-old female with history of cogni tive impairment, urge incontinence, gait instability presents to the office today accompanied by nurse Woodruff for evaluation of chronic conditions. She is accompanied by her son, Ambrose. She reports she is not good and ?lousy?. She mentions that she is dizzy but is unable to elaborate in quickly resorts to talking about how her son is running late. He states that she has not brought up any concerns like that. She reports compliance with all of her medications. Cognitive impairment-unable to provide a reliable history. Oriented to self and place. On donepezil, memantine. No mood disturbance Urge incontinence-managed with doxazosin and mirabegron Gait instability-utilizes walker, cane, transfer chair Hypertension-multiple recorded elevated blood pressures. Not currently on any antihypertensives. ROS: General: No fevers, malaise, unintentional weight loss HEENT: No blurred vision, diplopia. No sore throat, nasal congestion, rhinorrhea, sinus pain, ear pain Cardiovascular: No chest pain, palpitations, or leg edema Respiratory: No shortness of breath, wheezing, cough GI: No abdominal pain, nausea, vomiting, diarrhea, constipation, melena, hematochezia : No dysuria, hematuria, increased urinary frequency, decreased urinary output MSK: No myalgia, back pain Neuro: No headaches, weakness, paresthesias Skin: No rashes or lesions EXAM: Constitutional - Awake and Alert, No apparent distress Eyes - PERRL Cardiovascular - S1S2, RRR, No edema Respiratory - Normal lung expansion, Normal respiratory effort, No respiratory distress, CTA bilaterally Extremities - no calf tenderness bilaterally, no swelling Skin - Warm/Dry Neurological - Alert & oriented self and place Psychological - Appropriate affect [facility] Medical History (Updated 05/10/25 @ 13:33 by GRAZYNA Lucio) HTN (hypertension) Urge incontinence Dementia Surgical History History of colonoscopy (~01/27/16) Family History (Updated 03/05/25 @ 13:50 by Cordelia Vigil MA) Mother No problems noted. Father No problems noted. Social History Alcohol intake: never Patient Tobacco Use Status: Never used Tobacco e-Cigarette/Vaping Use: Never Used Advance Directives Date on File: 01/26/25 Current occupational status: retired and disabled Current occupation: rt handed Physical exam (Primary Care) Vital Signs: Last Vital Signs Temp 98.1 F 05/10/25 12:58 Pulse 91 05/10/25 12:58 Resp 20 05/10/25 12:58 BP 148/72 H 05/10/25 12:58 Pulse Ox 98 05/10/25 12:58 Oxygen Delivery Method Room Air 05/10/25 12:58 Tobacco/Smoking Status: Tobacco use Status Tobacco use date assessed 01/26/25 05/10/25 12:56 Patient Tobacco Use Status Never used Tobacco 05/10/25 12:56 e-Cigarette/Vaping Use Never Used 05/10/25 12:56 Coding Level of Care Code Est Pt Level 4 (35057) Diagnoses HTN (hypertension) I10 Urge incontinence N39.41 Dementia F03.90 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 Initiate losartan 25 mg daily. Low-sodium diet. Follow up in the office in 2 weeks for blood pressure recheck (2) Urge incontinence: Code(s): N39.41 - Urge incontinence Category: Medical Plan: Stable. Continue doxazosin and mirabegron (3) Dementia: Code(s): F03.90 - Unspecified dementia, unspecified severity, without behavioral disturbance, psychotic disturbance, mood disturbance, and anxiety Category: Medical Plan: Stable, no behavioral disturbance. No acute decompensation. 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
[2025-05-10 12:58] VITALS: BP 148/72; PULSE 91; RESP 20; TEMP 36.7; O2SAT 98
--- OUTSIDE RECORDS SUMMARY | 2025-05-10 16:23 | XMS_ITS | Patient Health Record ---
Author Organization [facility] xander Wilbur Address [address] [place] [address] Care Team Providers Care Sql Server Dba Name Role Phone Ashkan Fernandes MD Primary Care Provider Unavailab Mary Neri Unavailable [phone] Reason For Referral No Information Medications Medication [...] W/U Status Risk Notes Problem Plantar fasciitis (565747111) Plantar Fasciitis (728.71) Active confirmed Problem Pain in limb (36991735) Pain in Limb (729.5) Active confirmed Plan Of Treatment No Information Insurance Providers Payer Name Payer Address Payer Phone Subscriber Number Group Number Insured Name Patient Relationship to Insured Coverage Start Date Coverage End Date Medicare [facility] [employer] [address] [place] [address] [id number] Gladys Caban Self - patient is the insured [place] [address] [place] [phone] [id number] Gladys Caban Self - patient is the insured Medical (General) History Medical History History ICD Code measles mumps Gall bladder problems Chicken pox thyroid Surgical History Surgery Date(Month/Year) gall bladder hysterectomy right breast lump pneumonia Hospitalization History Reason Date(Month/Year) pt fell had 6 [place] [facility] [place] [facility] [place]
--- OUTSIDE RECORDS SUMMARY | 2025-05-10 16:23 | XMS_ITS | Patient Health Record ---
Author Organization [facility] Address [address] [place] [address] Care Team Providers Care Manager Storage Name Role Phone Dom (RETIRED) Ashkan MCGUIRE Primary Care Provider Unavailable Noman Francis Jr Unavailable Reason For Referral No Information Medications Medication SIG (Take, Route, Frequency, Duration) Notes Start Date End Date Status Colyte with Flavor Packs 240 GM As directed Orally Over the specified time.; Duration: 1 day(s) 09/28/2015 Active Problems Problem Type SNOMED Code ICD Code Onset Dates Problem Status W/U Status Risk Notes Problem Colon cancer screening (404893212) Colon cancer screening (Z12.11) Active confirmed Problem Hypertension (30599879) Hypertension (I10) Active confirmed Problem Fatty liver (878983698) Fatty liver (K76.0) Active confirmed Plan Of Treatment Future Test Test Name Order Date COLONOSCOPY 09/28/2015 Insurance Providers Payer Name Payer Address Payer Phone Subscriber Number Group Number Insured Name Patient Relationship to Insured Coverage Start Date Coverage End Date [place] [address] [place] [address] [id number] IRAM HARRIS Self - patient is the insured [employer] [address] [place] [phone] [id number] IRAM HARRIS Self - patient is the insured Medical (General) History Medical History History ICD Code colonoscopy 07-19-2010 hypertension Denies UT,DM,CVA,Lung disease,renal dise ase Surgical History Surgery Date(Month/Year) cholecystectomy hysterectomy for abnormal uterine bleedi ng lumpectomy, right breast
== END ==
PROVIDERS: PCP Physician Assistant; Visit Provider Physician Assistant
DX: I10 Essential (primary) hypertension (principal); N39.41 Urge incontinence; F03.90 Unspecified dementia, unspecified severity, without behavioral disturbance, psychotic disturbance, mood disturbance, and anxiety; R26.0 Ataxic gait

== ENCOUNTER 2025-05-24 11:32 | Outpatient (AMB) | payer MEDICARE, OTHER, SELFPAY ==
--- NOTE | 2025-05-24 10:15 | MHC.PC.OV ---
Vital Signs 05/24/25 11:38 Height 5 ft 7 in Weight 84.822 kg BMI 29.3 BP 144/82 H Blood Pressure Location Lt brachial Position Sitting Respiration 22 H Pulse 92 Pulse Source Pulse Oximeter Temp 97.7 F Temp Source Temporal Artery Scan Pulse Oximetry (%) 97 Oxygen Delivery Method Room Air Intake Visit Reasons: BP Check NEEDS RM 1 OR 2 Banner Painter Required: No Accompanied by: Son Allergies No Known Allergies (No Known Allergies*) Allergy (Verified 05/24/25 10:15) Medication List - Last Reconciled 05/24/25 by GRAZYNA Lucio acetaminophen 1,000 mg (2 x 500 mg) PO Q8H PRN chair, wheel (Wheel chair) transfer chair donepezil 5 mg PO BEDTIME doxazosin 4 mg PO DAILY ibuprofen 400 mg PO Q6H PRN loperamide (Imodium A-D) 2 mg PO Q6H PRN losartan 25 mg PO DAILY memantine 5 mg PO BEDTIME Myrbetriq ER (mirabegron) 25 mg PO DAILY NS ondansetron 4 mg PO Q6H PRN Tobacco use date assessed: 01/26/25 HPI HPI Comments History of Present Illness Details 84-year-old female with history of cognitive impairment, urge incontinence, gait instability accompanied by her son for blood pressure follow-up. She was started on losartan 25 mg daily at last visit which she has been taking as prescribed. Blood pressure in the office today is 144/82 though patient is somewhat anxious/agitated which is her baseline when she comes into the office. There is also some concern about hearing loss. She does wear hearing aids, question whether they are functioning as they should. Concerns about wax impaction. ROS: Unable to obtain given cognitive impairment EXAM: Constitutional - Awake and Alert, No apparent distress Eyes - PERRL Ears-b/l hearing aids. external ears normal, canals with scant light brown cerumen but visual of TM. There is a rupture of the superior aspect of the right TM without any drainage Cardiovascular - S1S2, RRR, No edema Respiratory - Normal lung expansion, Normal respiratory effort, No respiratory distress, CTA bilaterally Extremities - no calf tenderness bilaterally, no swelling Skin - Warm/Dry Neurological - Alert & oriented x3 Psychological - Appropriate affect [facility] Medical History (Updated 05/24/25 @ 11:54 by GRAZYNA Lucio) HTN (hypertension) Urge incontinence Dementia Surgical History History of colonoscopy (~01/27/16) Family History (Updated 03/05/25 @ 13:50 by Cordelia Vigil MA) Mother No problems noted. Father No problems noted. Social History Alcohol intake: never Patient Tobacco Use Status: Never used Tobacco e-Cigarette/Vaping Use: Never Used Advance Directives Date on File: 01/26/25 Current occupational status: retired and disabled Current occupation: rt handed Physical exam (Primary Care) Vital Signs: Last Vital Signs Temp 97.7 F 05/24/25 11:38 Pulse 92 05/24/25 11:38 Resp 22 H 05/24/25 11:38 BP 144/82 H 05/24/25 11:38 Pulse Ox 97 05/24/25 11:38 Oxygen Delivery Method Room Air 05/24/25 11:38 BMI result Body Mass Index 29.3 Tobacco/Smoking Status: Tobacco use Status Tobacco use date assessed 01/26/25 05/24/25 10:16 Patient Tobacco Use Status Never used Tobacco 05/24/25 10:16 e-Cigarette/Vaping Use Never Used 05/24/25 10:16 Coding Level of Care Code Est Pt Level 3 (36771) Complex EM visit Add On G2211 Diagnoses HTN (hypertension) I10 Hearing loss H91.90 Assessment & Plan Assessment & Plan (1) HTN (hypertension): Code(s): I10 - Essential (primary) hypertension Category: Medical Plan: Reasonably controlled for age and given agitation related to cognitive impairment. Continue losartan 25 mg daily. Advised to check blood pressures at home. (2) Hearing loss: Code(s): H91.90 - Unspecified hearing loss, unspecified ear Category: Medical Plan: Referred to audiology. No significant cerumen obstructing visual of TM are contributing to hearing loss. Plan Follow-up in the office in 4 months Orders: Referrals Audiology Referral H91.90 - Unspecified hearing loss, unspecified ear
[2025-05-24 11:38] VITALS: BP 144/82; PULSE 92; RESP 22; TEMP 36.5; O2SAT 97; BMI 29.3
== END 2025-05-24 12:06 | disposition home or self-care (01) ==
LOC: HO.HMCHD 11:32
PROVIDERS: PCP Physician Assistant; Visit Provider Physician Assistant
DX: I10 Essential (primary) hypertension (principal); H91.90 Unspecified hearing loss, unspecified ear

== ENCOUNTER → 2025-05-24 11:32 | Outpatient (BNVA) | payer MEDICARE, OTHER, SELFPAY | PROVIDERS: PCP Physician Assistant; Visit Provider Physician Assistant | DX: I10 Essential (primary) hypertension (principal); H91.90 Unspecified hearing loss, unspecified ear; Z79.899 Other long term (current) drug therapy | CPT/HCPCS: 99212 ==

== ENCOUNTER 2025-06-25 13:04 | Outpatient (AMB) | payer MEDICARE, OTHER, SELFPAY ==
--- NOTE | 2025-06-25 13:17 | A.OFFPC_ITS ---
Vital Signs 06/25/25 13:52 BP 132/68 Respiration 16 Pulse 81 Pulse Source Pulse Oximeter Temp 97.7 F Temp Source Temporal Artery Scan Pulse Oximetry (%) 96 Oxygen Delivery Method Room Air Intake Visit Reasons: Blister Waist / back side Allergies No Known Allergies (No Known Allergies*) Allergy (Verified 05/24/25 10:15) Tobacco use date assessed: 01/26/25 HPI HPI Comments History of Present Illness Details 84-year-old female with history of cogni tive impairment, urge incontinence, gait instability accompanied by her son for evaluation. blood pressure follow-up. History obtained from son/aid Kacy Paredes ([employer]). Reporting a blister on the L buttock ntoed for 2 days. She does endorse discomfort. +incontinent at baseline, uses pad/liner. Using barrier cream. Does use heating pad but Kacy reports that has been put away. No fevers, chills, drainage. Not currently using any dressing. per Kacy, she sits for long periods in her chair every day. ROS: unable to obtain due to mental status EXAM: Constitutional - Awake and Alert, No apparent distress Eyes - PERRL Cardiovascular - S1S2, RRR, No edema Respiratory - Normal lung expansion, Normal respiratory effort, No respiratory distress, CTA bilaterally Extremities - no calf tenderness bilaterally, no swelling Skin - Warm/Dry. 1.5cm x 1cm area of scabbed ulceration with surrounding erythema L upper buttock. [place] skin of gluteal cleft and perinium. Moist liner in place Neurological - Alert & oriented x3 Psychological - Appropriate affect [facility] Medical History (Updated 06/26/25 @ 21:32 by GRAZYNA Lucio) HTN (hypertension) Urge incontinence Dementia Surgical History History of colonoscopy (~01/27/16) Family History (Updated 03/05/25 @ 13:50 by Cordelia Vigil MA) Mother No problems noted. Father No problems noted. Social History Alcohol intake: never Patient Tobacco Use Status: Never used Tobacco e-Cigarette/Vaping Use: Never Used Advance Directives Date on File: 01/26/25 Current occupational status: retired and disabled Current occupation: rt handed Physical exam (Primary Care) Vital Signs: Last Vital Signs Temp 97.7 F 06/25/25 13:52 Pulse 81 06/25/25 13:52 Resp 16 06/25/25 13:52 BP 132/68 06/25/25 13:52 Pulse Ox 96 06/25/25 13:52 Oxygen Delivery Method Room Air 06/25/25 13:52 Tobacco/Smoking Status: Tobacco use Status Tobacco use date assessed 01/26/25 06/25/25 13:23 Patient Tobacco Use Status Never used Tobacco 06/25/25 13:23 e-Cigarette/Vaping Use Never Used 06/25/25 13:23 Coding Level of Care Code Est Pt Level 4 (71455) Add On Problem Visit Only Diagnoses Stage II pressure sore L89.92 Urinary incontinence R32 Assessment & Plan Assessment & Plan (1) Stage II pressure sore: Code(s): L89.92 - Pressure ulcer of unspecified site, stage 2 Category: Medical Plan: VNA for wound care. Recommend foam dressings, close monitoring for infection. Reposition q2h. Apply barrier cream with pad/liner changes often. Encourage OOB or chair (2) Urinary incontinence: Code(s): R32 - Unspecified urinary incontinence Category: Medical Plan: Increase frequency of liner changes and utilize barrier cream for skin integrity Plan Follow up in 1 week for wound check Orders: [facility]errals [facility] Referral L89.92 - Pressure ulcer of unspecified site, stage 2 Patient Instructions: Pressure Ulcer- stage 2 left buttock Use pillow when sleeping to offload pressure Repositioning often Foam dressing to buttock every 48hours. Can use barrier cream
[2025-06-25 13:52] VITALS: BP 132/68; PULSE 81; RESP 16; TEMP 36.5; O2SAT 96
--- OUTSIDE RECORDS SUMMARY | 2025-06-25 18:43 | XMS_ITS | Patient Health Record ---
Author Organization [facility] Address [address] [place] [address] Care Team Providers Care Eyelet Row Marker Name Role Phone Dom (RETIRED) Ashkan MCGUIRE Primary Care Provider Unavailable Noman Francis Jr Unavailable [phone] Reason For Referral No Information Medications Medication SIG (Take, Route, Frequency, Duration) Notes Start Date End Date Status Colyte with Flavor Packs 240 GM Solution Reconstituted As directed Orally Over the specified time.; Duration: 1 day(s) 09/28/2015 Active Social History Social History Additional Details Category Social Info Options Details Miscellaneous: Marital status: 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 Problems Problem Type SNOMED Code ICD Code Onset Dates Problem Status W/U Status Risk Notes Problem Colon cancer screening (673352042) Colon cancer screening (Z12.11) Active confirmed Problem Hypertension (12226003) Hypertension (I10) Active confirmed Problem Fatty liver (561019204) Fatty liver (K76.0) Active confirmed Plan Of Treatment Future Test Test Name Order Date COLONOSCOPY 09/28/2015 Insurance Providers Payer Name Payer Address Payer Phone Subscriber Number Group Number Insured Name Patient Relationship to Insured Coverage Start Date Coverage End Date MEDICARE OF [place] [address] [place] [address] [phone] [id number] IRAM HARRIS Self - patient is the insured [employer] [address] [place] [phone] [id number] IRAM HARRIS Self - patient is the insured Medical (General) History Medical History History ICD Code colonoscopy 1-5-2011 hypertension Denies [place],DM,CVA,Lung disease,renal dise ase Surgical History Surgery Date(Month/Year) cholecystectomy hysterectomy for abnormal uterine bleedi ng lumpectomy, right breast
--- OUTSIDE RECORDS SUMMARY | 2025-06-25 18:43 | XMS_ITS | Patient Health Record ---
Author Organization [facility] [place] Address [address] [place] [address] Care Team Providers Care Caul Puller Name Role Phone Ashkan Fernandes MD Primary Care Provider Unavailab Mary Neri Unavailable [phone] Reason For Referral No Information Medications Medication [...] W/U Status Risk Notes Problem Plantar fasciitis (148162041) Plantar Fasciitis (728.71) Active confirmed Problem Pain in limb (54603844) Pain in Limb (729.5) Active confirmed Plan Of Treatment No Information Insurance Providers Payer Name Payer Address Payer Phone Subscriber Number Group Number Insured Name Patient Relationship to Insured Coverage Start Date Coverage End Date Medicare National [facility] [address] [place] [address] [phone] [id number] Gladys Caban Self - patient is the insured [employer] [address] [place] [phone] [id number] Gladys Caban Self - patient is the insured Medical (General) History Medical History History ICD Code measles mumps Gall bladder problems Chicken pox thyroid Surgical History Surgery Date(Month/Year) gall bladder hysterectomy right breast lump pneumonia Hospitalization History Reason Date(Month/Year) pt fell had 6 stitches in head - [facility] [place] 07/16 020 [facility] [place]-sars virus 04/2019
== END 2025-06-25 13:43 | disposition home or self-care (01) ==
LOC: HO.HMCHD 13:04
PROVIDERS: PCP Physician Assistant; Visit Provider Physician Assistant
DX: L89.92 Pressure ulcer of unspecified site, stage 2 (principal); R32 Unspecified urinary incontinence

== ENCOUNTER → 2025-06-25 13:04 | Outpatient (BNVA) | payer MEDICARE, OTHER, SELFPAY | PROVIDERS: PCP Physician Assistant; Visit Provider Physician Assistant | DX: L89.322 Pressure ulcer of left buttock, stage 2 (principal); R32 Unspecified urinary incontinence; I10 Essential (primary) hypertension | CPT/HCPCS: 99212 ==

== ENCOUNTER 2025-07-05 14:20 | Outpatient (AMB) | payer MEDICARE, OTHER, SELFPAY ==
--- NOTE | 2025-07-05 14:31 | MHC.PC.OV ---
Vital Signs 07/05/25 14:34 Height 5 ft 7 in BP 106/70 Pulse 74 Pulse Source Pulse Oximeter Temp 97.4 F Temp Source Temporal Artery Scan Pulse Oximetry (%) 98 Oxygen Delivery Method Room Air Intake Visit Reasons: Wound Check Curriculum And Assessment Director Required: No Accompanied by: Son Allergies No Known Allergies (No Known Allergies*) Allergy (Verified 07/05/25 14:31) Medication List - Last Reconciled 07/05/25 by GRAZYNA Lucio acetaminophen 1,000 mg (2 x 500 mg) PO Q8H PRN chair, wheel (Wheel chair) transfer chair donepezil 5 mg PO BEDTIME doxazosin 4 mg PO DAILY ibuprofen 400 mg PO Q6H PRN loperamide (Imodium A-D) 2 mg PO Q6H PRN losartan 25 mg PO DAILY memantine 5 mg PO BEDTIME Myrbetriq ER (mirabegron) 25 mg PO DAILY NS ondansetron 4 mg PO Q6H PRN zinc oxide-vitamin B5-vit E 11.3 % (Balmex Adult Care) 1 appl topical 6XD PRN Tobacco use date assessed: 01/26/25 HPI HPI Comments History of Present Illness Details 84-year-old female with history of cognitive impairment, urge incontinence, gait instability accompanied by her son for evaluation and wound recheck. History obtained from son/aid Kacy Paredes ([employer]). Reporting a blister on the L buttock noted for 2 days, now 9 days. She does endorse discomfort. +incontinent at baseline, uses pad/liner. Using barrier cream. Does use heating pad but Kacy reports that has been put away. No fevers, chills, drainage. Not currently using any dressing. per Kacy, she sits for long periods in her chair every day. ROS: unable to obtain due to mental status EXAM: Constitutional - Awake and Alert, No apparent distress Eyes - PERRL Cardiovascular - S1S2, RRR, No edema Respiratory - Normal lung expansion, Normal respiratory effort, No respiratory distress, CTA bilaterally Extremities - no calf tenderness bilaterally, no swelling Skin - Warm/Dry. 1.5cm x 1cm area of scabbed ulceration with surrounding pink/erythema L upper buttock. [facility] skin of gluteal cleft and perinium. Moist liner in place Neurological - Alert & oriented x3 Psychological - Appropriate affect [facility] Medical History (Updated 06/26/25 @ 21:32 by GRAZYNA Lucio) HTN (hypertension) Urge incontinence Dementia Surgical History History of colonoscopy (~01/27/16) Family History (Updated 03/05/25 @ 13:50 by Cordelia Vigil MA) Mother No problems noted. Father No problems noted. Social History Alcohol intake: never Patient Tobacco Use Status: Never used Tobacco e-Cigarette/Vaping Use: Never Used Advance Directives Date on File: 01/26/25 Current occupational status: retired and disabled Current occupation: rt handed Physical exam (Primary Care) Vital Signs: Last Vital Signs Temp 97.4 F 07/05/25 14:34 Pulse 74 07/05/25 14:34 BP 106/70 07/05/25 14:34 Pulse Ox 98 07/05/25 14:34 Oxygen Delivery Method Room Air 07/05/25 14:34 Tobacco/Smoking Status: Tobacco use Status Tobacco use date assessed 01/26/25 07/05/25 14:36 Patient Tobacco Use Status Never used Tobacco 07/05/25 14:36 e-Cigarette/Vaping Use Never Used 07/05/25 14:36 Coding Level of Care Code Est Pt Level 3 (42593) Diagnoses Stage II pressure sore L89.92 Assessment & Plan Assessment & Plan (1) Stage II pressure sore: Code(s): L89.92 - Pressure ulcer of unspecified site, stage 2 Category: Medical Plan: VNA for wound care. Recommend foam dressings, close monitoring for infection. Reposition q2h. Apply barrier cream with pad/liner changes often. Encourage OOB or chair. Continue working with Kacy for positioning. No evidence of infection and appears to be healing well. Would benefit from wound care as a preventative for infection. Barrier cream ordered Plan Follow-up in the office in September as scheduled Medications: New zinc oxide-vitamin B5-vit E 11.3 % (Balmex Adult Care) 1 appl topical 6XD PRN 340 grams 1RF skin irritation
[2025-07-05 14:34] VITALS: BP 106/70; PULSE 74; TEMP 36.3; O2SAT 98
--- OUTSIDE RECORDS SUMMARY | 2025-07-05 17:47 | XMS_ITS | Patient Health Record ---
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 Problems Problem Type SNOMED Code ICD Code Onset Dates Problem Status W/U Status Risk Notes Problem Colon cancer screening (603166552) Colon cancer screening (Z12.11) Active confirmed Problem Hypertension (62014931) Hypertension (I10) Active confirmed Problem Fatty liver (349356808) Fatty liver (K76.0) Active confirmed Plan Of Treatment Future Test Test Name Order Date COLONOSCOPY 09/28/2015 Insurance Providers Payer Name Payer Address Payer Phone Subscriber Number Group Number Insured Name Patient Relationship to Insured Coverage Start Date Coverage End Date MEDICARE OF [employer] [address] [place] [address] [id number] IRAM HARRIS Self - patient is the insured [employer] [address] [place] [phone] [id number] IRAM HARRIS Self - patient is the insured Medical (General) History Medical History History ICD Code colonoscopy 1-5-2011 hypertension Denies [place],DM,CVA,Lung disease,renal dise ase Surgical History Surgery Date(Month/Year) cholecystectomy hysterectomy for abnormal uterine bleedi ng lumpectomy, right breast
--- OUTSIDE RECORDS SUMMARY | 2025-07-05 17:47 | XMS_ITS | Patient Health Record ---
Author Organization [facility] [place] Address [address] [place] [address] Care Team Providers Care Primer And Powder Canning Leader Name Role Phone Ashkan Fernandes MD Primary Care Provider Unavailab Mary Neri Unavailable [phone] Reason For Referral No Information Medications Medication [...] W/U Status Risk Notes Problem Plantar fasciitis (979195699) Plantar Fasciitis (728.71) Active confirmed Problem Pain in limb (94135047) Pain in Limb (729.5) Active confirmed Plan Of Treatment No Information Insurance Providers Payer Name Payer Address Payer Phone Subscriber Number Group Number Insured Name Patient Relationship to Insured Coverage Start Date Coverage End Date Medicare [facility] [address] [place] [address] [id number] Gladys Caban Self - patient is the insured [employer] [place] [place] [address] [place] [phone] [id number] Gladys Caban Self - patient is the insured Medical (General) History Medical History History ICD Code measles mumps Gall bladder problems Chicken pox thyroid Surgical History Surgery Date(Month/Year) gall bladder hysterectomy right breast lump pneumonia Hospitalization History Reason Date(Month/Year) pt fell had 6 stitches in head - [facility] [place] 07/16 020 [facility] [place] virus 04/2019
== END 2025-07-05 15:13 | disposition home or self-care (01) ==
LOC: HO.HMCHD 14:21
PROVIDERS: PCP Physician Assistant; Visit Provider Physician Assistant
DX: L89.92 Pressure ulcer of unspecified site, stage 2 (principal)

== ENCOUNTER → 2025-07-05 14:20 | Outpatient (BNVA) | payer MEDICARE, OTHER, SELFPAY | PROVIDERS: PCP Physician Assistant; Visit Provider Physician Assistant | DX: L89.322 Pressure ulcer of left buttock, stage 2 (principal) | CPT/HCPCS: 99212 ==